=== PATIENT | male | born 1940 | race Caucasian/White ===

== ENCOUNTER → 2020-05-26 09:15 | Outpatient (CLI) | payer MEDICARE, SELFPAY | PROVIDERS: Family Provider Physician Assistant Medical; PCP Physician Assistant Medical; Referring Provider Physician Assistant Medical; Visit Provider Family Medicine | DX: L08.89 Other specified local infections of the skin and subcutaneous tissue (principal); I87.2 Venous insufficiency (chronic) (peripheral); L97.321 Non-pressure chronic ulcer of left ankle limited to breakdown of skin; L03.116 Cellulitis of left lower limb; R60.0 Localized edema | CPT/HCPCS: 11042; 87070; 87205; 99204; 99214 ==

== ENCOUNTER → 2020-05-26 14:49 | Outpatient (ROUT) | payer MEDICARE, SELFPAY | PROVIDERS: Family Provider Physician Assistant Medical; PCP Physician Assistant Medical; Visit Provider Family Medicine | DX: L08.89 Other specified local infections of the skin and subcutaneous tissue (principal) | CPT/HCPCS: 87070; 87075; 87205 ==

== ENCOUNTER → 2020-05-29 10:52 | Outpatient (CLI) | payer MEDICARE, SELFPAY | PROVIDERS: Family Provider Physician Assistant Medical; PCP Physician Assistant Medical; Referring Provider Physician Assistant Medical; Visit Provider Family Medicine | DX: I87.2 Venous insufficiency (chronic) (peripheral) (principal); L97.321 Non-pressure chronic ulcer of left ankle limited to breakdown of skin; R60.0 Localized edema | CPT/HCPCS: 29581 ==

== ENCOUNTER → 2020-06-02 14:58 | Outpatient (CLI) | payer MEDICARE, SELFPAY | PROVIDERS: Family Provider Physician Assistant Medical; PCP Physician Assistant Medical; Referring Provider Physician Assistant Medical; Visit Provider Family Medicine | DX: I87.2 Venous insufficiency (chronic) (peripheral) (principal); L97.321 Non-pressure chronic ulcer of left ankle limited to breakdown of skin; R60.0 Localized edema | CPT/HCPCS: 29581; 97597 ==

== ENCOUNTER → 2020-06-09 10:53 | Outpatient (CLI) | payer MEDICARE, SELFPAY | PROVIDERS: Family Provider Physician Assistant Medical; PCP Physician Assistant Medical; Referring Provider Physician Assistant Medical; Visit Provider Family Medicine | DX: I87.2 Venous insufficiency (chronic) (peripheral) (principal); L97.321 Non-pressure chronic ulcer of left ankle limited to breakdown of skin; R60.0 Localized edema | CPT/HCPCS: 11042 ==

== ENCOUNTER → 2020-06-16 10:45 | Outpatient (CLI) | payer MEDICARE, SELFPAY | PROVIDERS: Family Provider Physician Assistant Medical; PCP Physician Assistant Medical; Referring Provider Physician Assistant Medical; Visit Provider Family Medicine | DX: I87.2 Venous insufficiency (chronic) (peripheral) (principal); L97.321 Non-pressure chronic ulcer of left ankle limited to breakdown of skin; R60.0 Localized edema | CPT/HCPCS: 29581; 99213 ==

== ENCOUNTER → 2020-06-23 09:45 | Outpatient (CLI) | payer MEDICARE, SELFPAY | PROVIDERS: Family Provider Physician Assistant Medical; PCP Physician Assistant Medical; Referring Provider Physician Assistant Medical; Visit Provider Family Medicine | DX: I87.2 Venous insufficiency (chronic) (peripheral) (principal); L97.321 Non-pressure chronic ulcer of left ankle limited to breakdown of skin; R60.0 Localized edema | CPT/HCPCS: 99213 ==

== ENCOUNTER → 2022-01-06 11:42 | Outpatient (CLI) | payer MEDICARE, SELFPAY ==
--- NOTE | 2022-01-06 11:45 | DI.MRI.S_ITS ---
PROCEDURE: MR LUMBAR SPINE WO CON INDICATIONS: Radiculopathy, lumbar region TECHNIQUE: Noncontrast sagittal T1 spin echo and T2 fast echo, sagittal STIR, and T2 fast spin echo through the lumbar spine. In cases with scoliosis, additional coronal T2 fast spin echo may be performed. COMPARISON: None. FINDINGS: Image quality: Excellent. Alignment and Curvature: Degenerative retrolisthesis L1-2. Remainder the vertebral body height and alignment is well maintained. Bone Marrow: Marrow is of normal overall signal. No acute vertebral body compression fractures. Spinal Cord: Conus medullaris terminates at the L1 level. Visualized cord demonstrates normal signal and size. Paraspinous Soft Tissues: No paravertebral masses. T12-L1: Normal appearance. L1-L2: Disc space narrowing with circumferential disc bulge and hypertrophic facet joints results in mild central stenosis. Mild bilateral foraminal stenosis L2-L3: Disc space narrowing with circumferential disc bulge and hypertrophic facet joints results in mild central stenosis. No foraminal stenosis L3-L4: Disc space narrowing, hypertrophic facet joints and ligamentum flavum laxity combined result in severe central stenosis. Mild left and no right foraminal stenosis L4-L5: Disc space narrowing with circumferential disc bulge and hypertrophic facet joints results in moderate central stenosis mild bilateral foraminal stenosis. L5-S1: Disc space narrowing with circumferential disc bulge and hypertrophic facet joints results in mild central stenosis. Mild bilateral foraminal stenosis. IMPRESSION: Multilevel degenerative disc disease and arthropathy results in varying degrees of central and foraminal stenosis including severe L3-4 central stenosis Approved by: Seth Hope M.D. on 01/06/2022 at 13:49
== END ==
PROVIDERS: Family Provider Physician Assistant Medical; PCP Nurse Practitioner Family; Referring Provider Physical Medicine & Rehabilitation; Visit Provider Physical Medicine & Rehabilitation
DX: M48.061 Spinal stenosis, lumbar region without neurogenic claudication (principal); M51.16 Intervertebral disc disorders with radiculopathy, lumbar region
CPT/HCPCS: 72148

== ENCOUNTER 2023-09-14 08:13 | Emergency (ER) | payer MEDICARE, SELFPAY ==
[2023-09-14] VITALS (9 sets, daily range): BP systolic 113–137; BP diastolic 57–77; PULSE 55–71; RESP 8–24; TEMP 36.8; O2SAT 93–97
--- NOTE | 2023-09-14 08:37 | ED_ITS ---
HPI - Male Genitourinary General Chief complaint: Urogenital-Male Stated complaint: per pt trouble urinating & retaining water Time Seen by Provider: 09/14/23 08:35 History of Present Illness HPI Narrative: Patient 83-year-old male history of atrial fibrillation not on anticoagulation history of BPH recent Burnham catheter that was taken out a couple of weeks ago presents today with inability to urinate. He was down in [place] for about the last 6 months he was supposed to have some sort of prostate surgery but needed cardiac clearance 1st. In [place] he had a cardiac catheterization he was medically cleared over his prostate surgery kept getting delayed and canceled. At some point recently had a catheter for a couple of weeks and then it was removed. At which point he flew back here to [facility] last week. He reports that his legs get significantly swollen along with his scrotum but he is unsure if he has congestive heart failure. He reports that he has been unable to urinate since last night. He has some dribbles last night but not able to go this morning. He denies any sort of significant abdominal pain nausea or vomiting. He has no chest pain reports his legs are again quite swollen. He denies any sort of orthopnea or dyspnea with exertion but does feel like his abdomen is little bit more swollen like it has been previously Related Data Previous Rx's Medication Instructions Recorded furosemide 40 mg tablet (Lasix) 80 mg (2 x 40 mg) PO BID #10 tabs 09/14/23 Allergies Allergy/AdvReac Type Severity Reaction Status Date / Time Penicillins Allergy Verified 09/14/23 10:01 Patient History Social History Smoking Status: Never smoker Exam Initial Vital Signs Initial Vital Signs: Vital Signs Temperature 98.2 F 09/14/23 08:35 Pulse Rate 71 09/14/23 08:35 Respiratory Rate 8 L 09/14/23 08:35 Blood Pressure 119/57 L 09/14/23 08:35 Pulse Oximetry 95 09/14/23 08:35 GENERAL: Alert pleasant 83-year-old male and in no acute distress. HEENT: Head atraumatic,EOMI, pupils reactive, face symmetric, moist mucous membranes CARDIOVASCULAR: Regular rate and rhythm without murmurs, rubs or gallops. RESPIRATORY: Breath sounds equal bilaterally, no wheezes rales or rhonchi. ABDOMEN: Soft, nontender. Normoactive bowel sounds all 4 quadrants. No guarding or rebound. : No CVA tenderness EXTREMITIES: Normal range of motion, no clubbing. Bilateral lower extremity significant swelling +2 pitting edema Neurovascularly intact NEUROLOGICAL: Alert and oriented x4.Normal gait and speech. Cranial nerves II through XII grossly intact. SKIN: Warm, dry, no laceration, no petechiae, no rashes or lesions. Course Orders Ordered: ED Orders 09/14/23 11:39 Urine Culture Stat Urine Microscopic Stat Discontinued Medications Furosemide (Furosemide 40 Mg/4 Ml Vial) 40 mg IV NOW ONE Stop: 09/14/23 09:34 Last Admin: 09/14/23 10:01 Dose: 40 mg Documented By: MARCOS Vital Signs Vital signs: Vital Signs - 8 hr 09/14/23 11:00 09/14/23 11:00 09/14/23 11:30 Pulse Rate 62 57 L Respiratory Rate 24 23 Blood Pressure 137/63 Pulse Oximetry 94 96 09/14/23 11:31 09/14/23 11:31 Pulse Rate 55 L Respiratory Rate 23 Blood Pressure 125/64 Pulse Oximetry 96 MDM - Male Genitourinary Lab Data 09/14/23 08:38 09/14/23 08:38 Labs: Lab Results 09/14/23 09/14/23 Range/Units 08:38 11:39 WBC 4.0 L (4.5-11.0) X10^3/uL RBC 3.67 L (4.5-5.9) X10^6/uL Hgb 12.2 L (13.5-17.5) g/dL Hct 36.6 L (41-53) % MCV 99.8 (80-100) fL MCH 33.3 (26-34) PG MCHC 33.4 (30-36) % RDW 15.2 H (11.6-14.8) % Plt Count 85 L (150-400) X10^3/uL Neut % (Auto) 68.1 (50-75) % Lymph % (Auto) 25.6 (25-40) % Wells % (Auto) 4.9 (3-14) % Eos % (Auto) 0.5 L (2-4) % Baso % (Auto) 0.9 (0-2) % Neut # (Auto) 2700 (8637-4893) /uL Lymph # (Auto) 1000 L (0594-7211) /uL Wells # (Auto) 200 (0-900) /uL Eos # (Auto) 0 (0-450) /uL Baso # (Auto) 0 (0-100) /uL PT 15.1 H (9.4-12.5) SECONDS INR 1.3 (0.9-1.3) APTT 42 H (25.1-36.5) SECONDS Sodium 140 (137-145) mmol/L Potassium 4.1 (3.4-5.1) mmol/L Chloride 109 H (98-107) mmol/L Carbon Dioxide 26 (22-32) mmol/L BUN 29 H (9-20) mg/dL Creatinine 0.81 (0.66-1.25) mg/dL Estimated GFR > 60 (>60) mL/min BUN/Creatinine Ratio 35.8 H (6-22) Glucose 117 H (80-110) mg/dL Calcium 8.5 (8.4-10.2) mg/dL Total Bilirubin 1.5 H (0.2-1.3) mg/dL AST 26 (17-59) IU/L ALT 13 (<50) IU/L Alkaline Phosphatase 170 H (38-126) U/L Total Creatine Kinase 60 (55-170) U/L Troponin I 0.025 (0.01-0.034) ng/mL NT-Pro-B Natriuret Pep 1980 H (<450) pg/mL Total Protein 7.4 (6.3-8.2) g/dL Albumin 3.8 (3.5-5.0) g/dL Globulin 3.6 (1.7-4.1) g/dL Albumin/Globulin Ratio 1.1 (1.0-2.8) Lipase 25 (23-300) U/L Urine RBC None seen (0-5/HPF) Urine WBC 1-5/hpf (0-5/HPF) Ur Squamous Epith Cells None seen (0-5/HPF) Urine Bacteria None seen (None) Ur Culture Indicated? Specimen cultured Vol Urine Centrifuged 10ml (spun) Urine Dip Bedside Urine Glucose Negative Bedside Urine Bilirubin - Negative Bedside Urine Ketone - Negative Urine Specific [place] 1.015 Bedside Urine Occult Blood - Negative Bedside Urine pH 6.0 Bedside Urine Protein - Negative Bedside Urine Urobilinogen - Negative Bedside Urine Nitrite - Negative Bedside Urine Leukocytes +/- 15 Esterase Imaging Data Chest x-ray: Radiologist's Impression: PROCEDURE: XR CHEST 1V INDICATIONS: chest pain TECHNIQUE: One view of the chest was acquired. COMPARISON: None. FINDINGS: Surgical changes and devices: None. Lungs and pleura: Small focus of consolidation in the right lung apex. Mediastinum: Mediastinal contours appear normal. Heart size is enlarged. Bones and chest wall: No suspicious bony lesions. Overlying soft tissues appear unremarkable. IMPRESSION: Small focus of consolidation in the right lung apex, concerning for infection. Scarring or malignancy less likely. Recommend follow-up in 1-2 months with chest x-ray to ensure resolution. Dictated by: Didier Gay M.D. on 09/14/2023 at 10:20 ECG Data Attestation: I personally reviewed and interpreted this ECG as follows: Prior ECG tracings: not available for review Interpretation: Atrial fibrillation with PVC rate 66 no ischemic changes no priors to compare MDM Narrative Medical decision making narrative: Patient 83-year-old male history of AFib congestive heart failure presents today with inability to pee. Initially bladder scan only showed less than 200 mL. He ultimately after Lasix was able 300 and is feeling better. Blood work has been reviewed WBC 4.0, hemoglobin 12.2, hematocrit 36.6, platelets 85, PT 15.1, INR 1.3, PTT 42, sodium 140 potassium 4.1, chloride 109, carbon dioxide 26, BUN 29, creatinine 0.81, glucose 117, bilirubin 1.5, AST 26, ALT 13, alk-phos 170, trop 0.025, BNP 1980 lipase 25 EKG reviewed as above AFib without ischemic changes Imaging reviewed DVT study negative bilaterally, chest x-ray no acute cardio finding Patient initially presents today with inability to pee he does bilateral lower extremity edema but his legs are wrapped suspect it is chronically this way or at least to some extent. Slight elevation in BNP no hypoxia or respiratory issues. Not having any chest pain. He does have rate controlled atrial fibrillation which is also probably chronic. At this time I would send him home on Lasix. He is able to urinate greater than 300 cc in the ED no suspicion for over tension at this time although he has had in the past. Patient is agreeable to hold on Burnham catheter seems to be urinating easily with Lasix. Discharge Plan Departure Patient Disposition: Home Clinical Impression: CHF (congestive heart failure) Instructions: DI for Heart Failure Activity Restrictions/Additional Instructions: *You have been diagnosed with congestive heart failure *What to do: At this time you do need an outpatient echocardiogram if you have not yet had 1 *Continue to take medications as directed Lasix 80 mg twice a day for 3 days or you may to 80 mg in the morning and 40 in the afternoon for 3 days, then resume 40 mg twice daily *Follow up with your primary care provider in 2-3 days or call [phone] *Return to ER if you should have increasing leg swelling chest pain shortness of breath difficulty breathing or any new, worsening or concerning symptoms Prescriptions: New furosemide [Lasix] 40 mg tablet 80 mg PO BID Qty: 10 0RF Referrals: Brandi Murrell ARNP [Primary Care Provider] - Stand Alone Forms: Patient Portal/API
--- NOTE | 2023-09-14 08:44 | DI.US.S_ITS ---
PROCEDURE: US PERIPH VENOUS LOW EXTREM BI INDICATIONS: swelling TECHNIQUE: Real-time imaging, as well as color and pulse Doppler interrogation, were performed of the deep veins of both legs from the inguinal ligament to the popliteal fossa, with documentation of the visualized calf veins. COMPARISON: None. FINDINGS: Right: The common femoral, femoral, popliteal, and the visualized calf veins are normally compressible, and free of intraluminal thrombus. Color and pulse Doppler demonstrate normal phasic intravascular flow. There is normal augmentation response to distal compression maneuver. Left: The common femoral, femoral, popliteal, and the visualized calf veins are normally compressible, and free of intraluminal thrombus. Color and pulse Doppler demonstrate normal phasic intravascular flow. There is normal augmentation response to distal compression maneuver. IMPRESSION: No findings of deep venous thrombosis in either lower extremity. Dictated by: Didier Gay M.D. on 09/14/2023 at 10:13 Approved by: Didier Gay M.D. on 09/14/2023 at 10:14
--- NOTE | 2023-09-14 08:45 | DI.RAD.S_ITS ---
PROCEDURE: XR CHEST 1V INDICATIONS: chest pain TECHNIQUE: One view of the chest was acquired. COMPARISON: None. FINDINGS: Surgical changes and devices: None. Lungs and pleura: Small focus of consolidation in the right lung apex. Mediastinum: Mediastinal contours appear normal. Heart size is enlarged. Bones and chest wall: No suspicious bony lesions. Overlying soft tissues appear unremarkable. IMPRESSION: Small focus of consolidation in the right lung apex, concerning for infection. Scarring or malignancy less likely. Recommend follow-up in 1-2 months with chest x-ray to ensure resolution. Dictated by: Didier Gay M.D. on 09/14/2023 at 10:20 Approved by: Didier Gay M.D. on 09/14/2023 at 10:20
[2023-09-14 08:56] LABS: Add Manual Diff / Slide Review NO; Basophils Absolute Auto 0 /uL (0-100); Basophils Percent Auto 0.9 % (0-2); Eosinophils Absolute Auto 0 /uL (0-450); Eosinophils Percent Auto 0.5 % (2-4); Hematocrit 36.6 % (41-53); Hemoglobin 12.2 g/dL (13.5-17.5); Lymphocytes Absolute Auto 1000 /uL (1100-4500); Lymphocytes Percent Auto 25.6 % (25-40); Mean Corpuscular HGB Conc 33.4 % (30-36); Mean Corpuscular Hemoglobin 33.3 PG (26-34); Mean Corpuscular Volume 99.8 fL (80-100); Monocytes Absolute Auto 200 /uL (0-900); Monocytes Percent Auto 4.9 % (3-14); Neutrophils Absolute Auto 2700 /uL (1500-7000); Neutrophils Percent Auto 68.1 % (50-75); Platelet Count 85 X10^3/uL (150-400); Red Blood Cell Count 3.67 X10^6/uL (4.5-5.9); Red Cell Distribution Width 15.2 % (11.6-14.8)
[2023-09-14 09:03] LABS: INR 1.3 (0.9-1.3); Prothrombin Time 15.1 SECONDS (9.4-12.5)
[2023-09-14 09:06] LABS: PTT Partial Thromboplastin Tim 42 SECONDS (25.1-36.5)
[2023-09-14 09:08] LABS: Alanine Aminotransferase 13 IU/L (<50); Albumin 3.8 g/dL (3.5-5.0); Albumin Globulin Ratio 1.1 (1.0-2.8); Alkaline Phosphatase 170 U/L (38-126); Aspartate Aminotransferase 26 IU/L (17-59); BUN Creatinine Ratio 35.8 (6-22); Bilirubin Total 1.5 mg/dL (0.2-1.3); Blood Urea Nitrogen 29 mg/dL (9-20); Calcium 8.5 mg/dL (8.4-10.2); Carbon Dioxide 26 mmol/L (22-32); Chloride 109 mmol/L (98-107); Creatine Kinase 60 U/L (55-170); Estimated Glomerular Filt Rate > 60 mL/min (>60); Globulin 3.6 g/dL (1.7-4.1); Glucose 117 mg/dL (80-110); HEMOLYSIS < 15 (0-50); Lipase 25 U/L (23-300); Potassium 4.1 mmol/L (3.4-5.1); Sodium 140 mmol/L (137-145); Total Protein 7.4 g/dL (6.3-8.2)
[2023-09-14 09:19] LABS: NT-proBNP (BNP-Adult 18+) 1980 pg/mL (<450); Troponin I 0.025 ng/mL (0.01-0.034)
[2023-09-14] MEDS: FUROSEMIDE 40 MG/4 ML VIAL IV (10:01)
[2023-09-14 11:57] LABS: Urine Volume 10mL (spun)
[2023-09-14 12:00] LABS: Bacteria Urine None Seen; Culture Indicated Urine Specimen Cultured; RBC Urine None Seen (0-5/HPF); Squamous Epithelial Cell Urine None Seen (0-5/HPF); WBC Urine 1-5/HPF (0-5/HPF)
== END 2023-09-14 11:50 | disposition home or self-care (01) ==
PROVIDERS: Emergency Provider Emergency Medicine; Family Provider Physician Assistant Medical; PCP Nurse Practitioner Family
DX: I50.9 Heart failure, unspecified (principal); I48.91 Unspecified atrial fibrillation
CPT/HCPCS: 36415; 51798; 71045; 80053; 81003; 81015; 82550; 83690; 83880; 84484; 85025; 85610; 85730; 87086; 93005; 93970; 96374; 99284; J1940

== ENCOUNTER → 2024-04-22 08:42 | Outpatient (CLI) | payer MEDICARE, SELFPAY | LOC: WC 08:45 | PROVIDERS: PCP Physician Assistant Medical; Visit Provider Surgery | DX: L97.322 Non-pressure chronic ulcer of left ankle with fat layer exposed (principal); I87.2 Venous insufficiency (chronic) (peripheral); R60.0 Localized edema; I50.9 Heart failure, unspecified; J44.9 Chronic obstructive pulmonary disease, unspecified; I48.91 Unspecified atrial fibrillation; E66.9 Obesity, unspecified; Z68.33 Body mass index [BMI] 33.0-33.9, adult | CPT/HCPCS: 11042; 87070; 87075; 87077; 87147; 87186; 87205; 99203; 99214 ==

== ENCOUNTER → 2024-04-25 08:52 | Outpatient (CLI) | payer MEDICARE, SELFPAY | PROVIDERS: PCP Physician Assistant Medical; Referring Provider Physician Assistant Medical; Visit Provider Surgery | DX: L97.822 Non-pressure chronic ulcer of other part of left lower leg with fat layer exposed (principal); I87.2 Venous insufficiency (chronic) (peripheral); R60.0 Localized edema | CPT/HCPCS: 29581 ==

== ENCOUNTER → 2024-04-29 09:39 | Outpatient (CLI) | payer MEDICARE, SELFPAY | PROVIDERS: PCP Physician Assistant Medical; Referring Provider Physician Assistant Medical; Visit Provider Surgery | DX: L97.322 Non-pressure chronic ulcer of left ankle with fat layer exposed (principal); I87.2 Venous insufficiency (chronic) (peripheral); R60.0 Localized edema | CPT/HCPCS: 11042 ==

== ENCOUNTER → 2024-05-06 12:23 | Outpatient (CLI) | payer MEDICARE, SELFPAY ==
--- NOTE | 2024-05-06 12:24 | DI.US.S_ITS ---
PROCEDURE: US VENOUS INSUFFICIENCY LTD INDICATIONS: venous leg ulcer on left lower extremity TECHNIQUE: Real time scanning was performed of the lower extremity venous system, with imaging documentation, as well as Color and pulse Doppler interrogation. COMPARISON: [facility], , [facility] VENOUS LOW EXTREM BI, 09/14/2023, 9:01. FINDINGS: LEFT LOWER EXTREMITY: The deep veins are normally compressible, and free of intraluminal thrombus. Color and pulse Doppler demonstrate pulsatile intravascular flow that is symmetric when compared to the contralateral side. There is normal augmentation with distal compression maneuver. Reflux is seen within the common femoral vein. Greater saphenous vein (GSV): Normally 4 mm or less in diameter, with any reflux less than 0.5 seconds. Saphenofemoral junction (SFJ): 7 mm. 2.5 seconds reflux. Proximal GSV: 17 mm. 3.4 seconds reflux. Mid GSV: 14 mm. 1.9 seconds reflux. Distal GSV: 10 mm. 1.5 seconds reflux. Calf GSV: 9 mm, and 2.7 seconds reflux Anterior accessory GSV (AAGSV): A patent accessory vein is seen proximally measuring 5 mm in diameter without reflux. Small saphenous vein (SSV): Posterior calf, draining into popliteal vein. Posterior calf: 4 mm. No reflux. Vein of Giacomini (posterior thigh connection between GSV and SSV): Anatomic variant not seen. Commercial Account Officer veins: Not identified. IMPRESSION: 1. No sonographic signs of deep venous thrombosis. 2. Deep venous reflux within the common femoral vein. 3. Superficial venous reflux throughout the greater saphenous vein. 4. Pulsatile venous waveforms. Recommend correlation for right heart failure or tricuspid regurgitation. Approved by: Babatunde Ramsay M.D. on 05/07/2024 at 9:07
== END ==
PROVIDERS: PCP Physician Assistant Medical; Referring Provider Surgery; Visit Provider Surgery
DX: L97.322 Non-pressure chronic ulcer of left ankle with fat layer exposed (principal); I87.2 Venous insufficiency (chronic) (peripheral); R60.0 Localized edema
CPT/HCPCS: 93971; 97602

== ENCOUNTER → 2024-05-06 14:47 | Outpatient (CLI) | payer MEDICARE, SELFPAY | PROVIDERS: PCP Physician Assistant Medical; Visit Provider Surgery | DX: L97.322 Non-pressure chronic ulcer of left ankle with fat layer exposed (principal); I87.2 Venous insufficiency (chronic) (peripheral); R60.0 Localized edema | CPT/HCPCS: 97602; 99213 ==

== ENCOUNTER → 2024-05-13 10:12 | Outpatient (CLI) | payer MEDICARE, SELFPAY | PROVIDERS: PCP Physician Assistant Medical; Visit Provider Surgery | DX: L97.322 Non-pressure chronic ulcer of left ankle with fat layer exposed (principal); I87.2 Venous insufficiency (chronic) (peripheral); R60.0 Localized edema; I48.91 Unspecified atrial fibrillation; J44.9 Chronic obstructive pulmonary disease, unspecified | CPT/HCPCS: 97602; 99213 ==

== ENCOUNTER → 2024-05-20 09:32 | Outpatient (CLI) | payer MEDICARE, SELFPAY | LOC: WC 09:38 | PROVIDERS: PCP Physician Assistant Medical; Visit Provider Surgery | DX: I87.2 Venous insufficiency (chronic) (peripheral) (principal); L98.8 Other specified disorders of the skin and subcutaneous tissue; R60.0 Localized edema | CPT/HCPCS: 99212; 99213 ==

== ENCOUNTER → 2024-05-27 14:30 | Outpatient (CLI) | payer MEDICARE, SELFPAY | PROVIDERS: PCP Physician Assistant Medical; Visit Provider Surgery | DX: I87.2 Venous insufficiency (chronic) (peripheral) (principal) | CPT/HCPCS: 99212; 99213 ==

== ENCOUNTER 2025-03-04 07:44 | Day surgery (SDC) | payer MEDICARE, SELFPAY ==
[2025-02-25 11:56] VITALS: BMI 32.8
[2025-03-04] VITALS (8 sets, daily range): BP systolic 111–132; BP diastolic 55–69; PULSE 56–61; RESP 12–17; TEMP 36.6–36.8; O2SAT 93–97
--- NOTE | 2025-03-04 06:14 | P.HP_ITS ---
History of Present Illness
--- NOTE | 2025-03-04 06:14 | PM.HP.IH.1 ---
History of Present Illness History of Present Illness Chief complaint: Open R inguinal hernia repair w/mesh Narrative: Patient presents for [facility] today. [facility] Medical History (Updated 02/25/25 @ 12:12 by Kia Trejo RN) History of COVID-19 Bilateral lower extremity edema Arrhythmia Asthma HTN (hypertension) Non-ischemic cardiomyopathy Chronic atrial fibrillation Valvular heart disease Heart failure PONV (postoperative nausea and vomiting) Surgical History (Updated 02/25/25 @ 12:12 by Kia Trejo RN) History of prostate surgery Hx of vein stripping Meds Home Medications and Allergies Home Medications ?Medication ?Instructions ?Recorded ?Confirmed ?Type gabapentin 300 mg capsule 300 mg PO DAILY 01/01/25 01/01/25 History meloxicam 7.5 mg tablet 7.5 mg PO DAILY 01/01/25 01/01/25 History metolazone 2.5 mg tablet 2.5 mg PO DAILY 01/01/25 01/01/25 History montelukast 10 mg tablet 10 mg PO DAILY 01/01/25 01/01/25 History prednisone 20 mg tablet 40 mg PO DAILY 01/01/25 01/01/25 History torsemide 10 mg tablet 10 mg PO DAILY 01/01/25 01/01/25 History Allergies Allergy/AdvReac Type Severity Reaction Status Date / Time Beef Containing Products Allergy Hives Verified 02/25/25 12:15 kiwi Allergy Hives Verified 02/25/25 12:15 nectarine Allergy Hives Verified 02/25/25 12:15 peach Allergy Hives Verified 02/25/25 12:15 Penicillins Allergy Hives Verified 02/25/25 12:15 shellfish derived Allergy Hives Verified 02/25/25 12:15 Exam Narrative Exam Narrative: Const General: healthy appearing, comfortable and no acute distress Orientation: alert and oriented x3 HENMT Ears: hearing grossly normal bilaterally Eyes Visual Frazier: normal visual frazier by confrontation Conjunctivae: conjunctivae normal Sclera: sclerae normal EOM: EOM intact bilaterally Resp Effort & Inspection: normal respiratory effort and able to speak in complete sentences Cardio Rate: regular rate GI Palpation: soft (NT) Extrem General: no pedal edema and no calf tenderness Assessment & Plan Assessment and plan (1) Right inguinal hernia: Status: Acute Plan Right inguinal hernia - plan open Lichenstein technique with mesh to avoid general anesthesia. Plan preop cardiac clearance. He has seen [facility] in the past, referral placed. The risks, benefits and options regarding the procedure were explained to the patient in detail. Risk discussion included but not limited to: bleeding, infection, pain, bruising, no lifting 6 weeks, recurrence. The patient was encouraged to ask questions and they were answered to their satisfaction. The patient understands and is agreeable to proceed. Time-Based Coding :: [TOTAL MINUTES] spent with patient and on the chart (including review of chart, obtaining history, exam, reviewing outside data, placing orders, documenting exam and treatment plan, and counseling patient) on [DATE]. PROFEE Counselor Education Professor Document charge(s): Yes Charge Codes Inpatient/observation care including admit and discharge same day: [id number]
--- NOTE | 2025-03-04 08:54 | SUR.PREOP ---
Start Potassium 02/28/25 for low potassium. Recheck on 03/03/25 Potassium 3.9
[2025-03-04] MEDS: LACTATED RINGERS 1,000 ML 42 ML IV (09:00)
--- NOTE | 2025-03-04 09:34 | SUR.OPER ---
Supine on padded OR bed, head on pillow, arms secured on padded arm boards at <90 degrees abduction, legs uncrossed, safety belt at thigh, tape over blanket over lower legs.
[2025-03-04] MEDS: BUPivacaine 0.25% W/ EPI (PF) 30 ML VIAL 60 ML INJ (09:39)
--- NOTE | 2025-03-04 10:44 | P.OP_ITS ---
Operative Date/Time/Diagnoses
--- NOTE | 2025-03-04 10:44 | PM.OP.1 ---
Operative Date/Time/Diagnoses Date of procedure: 03/04/25 Time of procedure: 10:45 Pre-op diagnosis: Right inguinal hernia Post-op diagnosis: same (Large indirect) Procedure & Clinicians Procedure: Open right inguinal hernia repair with mesh, Lizz technique Same procedure(s) as scheduled: Yes Indications: 84yo M with large RIH Surgeon: Elieser Baca Assisted?: Yes Information Technology Program Manager: Lokesh Gatica Anesthesia Type: General Operative Notes Findings: Large indirect inguinal hernia sac Closure Type: primary Specimen(s): none sent Applied: other (mesh) Estimated Blood Loss (mL): 20 Blood products transfused: none Procedure in detail: After informed consent and satisfactory sedation, the groins were shaved and prepped and draped in the usual sterile manner. Surgical time-out was performed with all team members in agreement. The correct side was marked in the preoperative holding area. The patient received appropriate preoperative antibiotics and DVT prophylaxis. A right inguinal incision was made with a 15 blade after infiltrating the skin and subcutaneous tissues with 0.25% Marcaine with epinephrine. The incision was continued through the subcutaneous tissues to the external abdominal oblique aponeurosis. The patient was noted to have a large hernia sac bulging through the external ring which was quite dilated. We [place] was used for exposure. Fifteen blade was used to make a small opening in the external abdominal oblique and this was continued proximally and distally with Metzenbaum scissors taking care to avoid injury to the ilioinguinal nerve. The large sac was brought off the pubic bone medially and a Germain drain was used for retraction. We skeletonized the cord by opening the cremasteric muscles anterior to the cord structures. The inguinal sac was isolated and carefully from the cord structures. This dissection was continued to the internal inguinal ring. The sac was opened to ensure there were no intraperitoneal contents in the hernia sac. The hernia had been reduced prior to the procedure after the patient was sedated. Once we ensured there were no peritoneal contents in the sac both visually and digitally, the sac was twisted and high ligation of the sac was performed with 2-0 silk suture ligature x2 and the distal sac was excised and discarded. The patient was also noted to have a large cord lipoma and this was similarly dissected from the cord structures and high ligation with 2-0 silk was performed with excellent hemostasis. The direct floor was intact. We reinforced this with mesh using the Lizz technique. A 2 x 4 inch piece of mesh was fashioned with Pena scissors. It was secured to the shelving edge of the inguinal ligament from the pubic bone and run laterally with a 3-0 Prolene. A 2nd 3-0 Prolene was started reinforcing the superomedial border of the mesh to the conjoined tendon. The mesh was split around the cord and then the tails were brought together to recreate an internal inguinal ring. The cord structures were noted to not be too tight at the internal ring created with the mesh. Hemostasis was excellent. The cord structures were returned to the inguinal canal we made sure the testicle was in the scrotum. Of note the patient had a small hydrocele that was marsupialized. The sac was quite lengthy and extended all the way to the testicle. The external abdominal oblique aponeurosis was reapproximated using 3-0 Vicryl running. I should also mention the tails of the mesh were brought together with 2-0 Ethibond suture. The Landen's fascia and subcutaneous layers were closed using 3-0 Vicryl running. The skin incision was closed using 4-0 Monocryl in a subcuticular manner. Dermabond glue was applied as a final dressing. The estimated blood loss was minimal. The instrument sponge and needle counts were all correct x2. The patient tolerated the procedure well and was transported to the recovery area in stable condition. Despite a large amount of local anesthetic the patient was still having discomfort under sedation and this required deeper sedation with an LMA airway mid procedure. Complications: none Post-operative Condition: stable Disposition: PACU Plan for aftercare: PACU then home
[2025-03-04] MEDS: fentaNYL 100 MCG/2 ML INJ IV ×2 (11:02→11:09)
[2025-03-04] MEDS: ACETAMINOPHEN IV 1,000 MG/100 ML VIAL 400 MG IV (11:52)
== END 2025-03-04 13:12 | disposition home or self-care (01) ==
PROVIDERS: PCP Physician Assistant Medical; Referring Provider Physician Assistant Medical; Visit Provider Surgery
PROC: (CPT 49505; principal; 2025-03-04 09:15)
DX: K40.90 Unilateral inguinal hernia, without obstruction or gangrene, not specified as recurrent (principal); D17.6 Benign lipomatous neoplasm of spermatic cord
CPT/HCPCS: 49505; C1781; J0131; J0689; J2405; J2704; J3010; J3490; J7120

== ENCOUNTER 2025-03-08 23:02 | Inpatient (IN) | payer MEDICARE, SELFPAY ==
--- NOTE | 2025-03-08 23:11 | ED.GIBLEED ---
HPI - GI Bleed General Chief complaint: GI Bleed Stated complaint: Rectal Bleeding Time Seen by Provider: 03/08/25 23:10 History of Present Illness HPI Narrative: 84-year-old male patient with a history of atrial fibrillation and chronic venous insufficiency / edema. he underwent an abdominal wall hernia repair 4 days ago. He was started on Eliquis for atrial fibrillation with his 1st dose taken today. He noticed blood per rectum for about the last 6 or 7 hours with no abdominal pain other than his postoperative pain which is improving in the right lower quadrant. He arrives by paramedics and has had stable vital signs with no tachycardia or hypotension. Related Data Home Medications ?Medication ?Instructions ?Recorded ?Confirmed gabapentin 300 mg capsule 300 mg PO DAILY 01/01/25 03/04/25 meloxicam 7.5 mg tablet 7.5 mg PO DAILY 01/01/25 03/04/25 metolazone 2.5 mg tablet 2.5 mg PO DAILY 01/01/25 03/04/25 montelukast 10 mg tablet 10 mg PO DAILY 01/01/25 03/04/25 prednisone 20 mg tablet 40 mg PO DAILY 01/01/25 03/04/25 torsemide 10 mg tablet 10 mg PO DAILY 01/01/25 03/04/25 apixaban 5 mg tablet (Eliquis) 5 mg PO BID 03/04/25 03/04/25 potassium chloride 10 mEq 10 meq PO DAILY 03/04/25 03/04/25 tablet,extended release Previous Rx's ?Medication ?Instructions ?Recorded oxycodone 5 mg capsule 5 mg PO Q4H PRN pain #20 caps 03/04/25 Allergies Allergy/AdvReac Type Severity Reaction Status Date / Time adhesive tape Allergy Severe rash, Verified 03/08/25 23:13 blister latex Allergy Severe hives, Verified 03/08/25 23:13 blister Beef Containing Products Allergy Hives Verified 03/08/25 23:13 kiwi Allergy Hives Verified 03/08/25 23:13 nectarine Allergy Hives Verified 03/08/25 23:13 peach Allergy Hives Verified 03/08/25 23:13 Penicillins Allergy Hives Verified 03/08/25 23:13 shellfish derived Allergy Hives Verified 03/08/25 23:13 Coban Allergy Mild Uncoded 03/08/25 23:13 Review of Systems Review of Systems ROS Unobtainable: All systems reviewed & are unremarkable except as noted in HPI and below Gastrointestinal Gastrointestinal: Reports as per HPI Patient History Medical History (Updated 03/09/25 @ 00:01 by Johnny Dye MD) History of COVID-19 Bilateral lower extremity edema Arrhythmia Asthma HTN (hypertension) Non-ischemic cardiomyopathy Chronic atrial fibrillation Valvular heart disease Heart failure PONV (postoperative nausea and vomiting) Surgical History (Updated 02/25/25 @ 12:12 by Kia Trejo RN) History of prostate surgery Hx of vein stripping alcohol intake frequency: 0-2 drinks per day Exam Narrative Exam Narrative: General: Alert and conversant. No distress. Appears well nourished and well hydrated Craniofacial: No evidence of trauma. Nontender and no swelling. Lungs: Clear to auscultation with good air movement. No wheezing, rales or rhonchi. No respiratory distress Cardiac: Regular rate and rhythm with no appreciable murmur or gallop Abdomen: Soft, nontender with no distention or masses. Normal bowel sounds. No rebound or guarding Rectal: Normal tone with a small amount of medium red blood on the gloved finger. Heme-positive Neuro: Alert and oriented. Cranial nerves, motor, sensory and cerebellar all grossly intact. No focal deficit Skin: Warm and normal color. No rashes Psychological: Normal affect and interaction. No evidence of delusion or psychosis. Normal mood. Initial Vital Signs Initial Vital Signs: Vital Signs Temperature 97.0 F L 03/08/25 23:13 Pulse Rate 80 03/08/25 23:13 Respiratory Rate 17 03/08/25 23:13 Blood Pressure 108/53 L 03/08/25 23:13 Pulse Oximetry 95 03/08/25 23:13 Oxygen Delivery Method Room Air 03/08/25 23:13 Course Course Course Narrative: 23:55 I discussed the patient's care with Dr. Baca, general surgery who is willing to consult on this patient for probable colonoscopy for his GI bleed. I discussed the patient's care with Dr. Pandya, hospitalist who agrees to admit him for lower GI bleed, probably related to Eliquis 00:10 Dr. Pandya was contacted and reviewed the chart and agrees to admit the patient on inpatient telemetry for lower GI bleed with General surgery consultation. Orders Ordered: ED Orders 03/08/25 23:15 CBC Auto Diff [Complete Blood Count AUTO DIFF] Stat CMP [Comprehensive Metabolic Panel] Stat PTT Partial Thromboplastin Garcia Stat Prothrombin Time INR Stat 03/09/25 00:01 Type and Screen Stat Vital Signs Vital signs: Vital Signs - 8 hr 03/08/25 23:13 Temperature 97.0 F L Pulse Rate 80 Respiratory Rate 17 Blood Pressure 108/53 L Pulse Oximetry 95 Oxygen Delivery Method Room Air MDM - GI Bleed Lab Data Attestation: I reviewed the patient's lab results. Lab results narrative: Hemoglobin 8.9 with hematocrit 25.2 with no recent for comparison. Otherwise lab work reassuring. 03/08/25 23:15 03/08/25 23:15 Labs: Lab Results 03/08/25 Range/Units 23:15 WBC 7.5 (4.5-11.0) X10^3/uL RBC 2.62 L (4.5-5.9) X10^6/uL Hgb 8.9 L (13.5-17.5) g/dL Hct 25.2 L (41-53) % MCV 96.2 (80-100) fL MCH 34.2 H (26-34) PG MCHC 35.5 (30-36) % RDW 14.1 (11.6-14.8) % Plt Count 155 (150-400) X10^3/uL Neut % (Auto) 69.6 (50-75) % Lymph % (Auto) 17.4 L (25-40) % [place] % (Auto) 9.7 (3-14) % Eos % (Auto) 2.4 (2-4) % Baso % (Auto) 0.9 (0-2) % Neut # (Auto) 5200 (8214-4971) /uL Lymph # (Auto) 1300 (6778-2906) /uL [place] # (Auto) 700 (0-900) /uL Eos # (Auto) 200 (0-450) /uL Baso # (Auto) 100 (0-100) /uL PT 17.2 H (9.4-12.5) SECONDS INR 1.5 H (0.9-1.3) APTT 31 (25.1-36.5) SECONDS Sodium 134 L (137-145) mmol/L Potassium 4.0 (3.4-5.1) mmol/L Chloride 101 (98-107) mmol/L Carbon Dioxide 24 (22-32) mmol/L BUN 58 H (9-20) mg/dL Creatinine 1.18 (0.66-1.25) mg/dL Estimated GFR > 60 (>60) mL/min BUN/Creatinine Ratio 49.2 H (6-22) Glucose 158 H (70-99) mg/dL Calcium 8.0 L (8.4-10.2) mg/dL Total Bilirubin 2.3 H (0.2-1.3) mg/dL AST 26 (17-59) IU/L ALT 13 (<50) IU/L Alkaline Phosphatase 128 H (38-126) U/L Total Protein 6.5 (6.3-8.2) g/dL Albumin 3.1 L (3.5-5.0) g/dL Globulin 3.4 (1.7-4.1) g/dL Albumin/Globulin Ratio 0.9 L (1.0-2.8) MDM Narrative Medical decision making narrative: Patient has new lower GI bleeding related to his Eliquis use and has stable vital signs but an ongoing bleed with anemia that is moderate. I have discussed his care with both hospitalist and general surgery who agreed to manage this patient with probable colonoscopy tomorrow or Monday. Patient is stable with no pain and is not bleeding enough to require emergent intervention. Discharge Plan Departure Patient Disposition: Admitted As Inpatient Clinical Impression: GI (gastrointestinal bleed) Admit Date/Time: 03/09/25 00:11 Admit Provider: Miguel Pandya
[2025-03-08 23:13] VITALS: BP 108/53; PULSE 80; RESP 17; TEMP 36.1; O2SAT 95; BMI 33.9
[2025-03-08 23:28] LABS: Add Manual Diff / Slide Review NO; Hematocrit 25.2 % (41-53); Hemoglobin 8.9 g/dL (13.5-17.5); Lymphocytes Absolute Auto 1300 /uL (1100-4500); Mean Corpuscular HGB Conc 35.5 % (30-36); Mean Corpuscular Hemoglobin 34.2 PG (26-34); Mean Corpuscular Volume 96.2 fL (80-100); Platelet Count 155 X10^3/uL (150-400)
[2025-03-08 23:33] LABS: INR 1.5 (0.9-1.3); Prothrombin Time 17.2 SECONDS (9.4-12.5)
--- NOTE | 2025-03-08 23:33 | PC.NURSE ---
Patient was turned and linens changed. he was not soiled. Placed in brief in case he begins having rectal bleeding again.
[2025-03-08 23:36] VITALS: PULSE 73; RESP 14; O2SAT 98
[2025-03-08 23:36] LABS: PTT Partial Thromboplastin Tim 31 SECONDS (25.1-36.5)
[2025-03-08 23:37] LABS: Alanine Aminotransferase 13 IU/L (<50); Albumin 3.1 g/dL (3.5-5.0); Albumin Globulin Ratio 0.9 (1.0-2.8); Alkaline Phosphatase 128 U/L (38-126); Blood Urea Nitrogen 58 mg/dL (9-20); Calcium 8.0 mg/dL (8.4-10.2); Carbon Dioxide 24 mmol/L (22-32); Chloride 101 mmol/L (98-107); Estimated Glomerular Filt Rate > 60 mL/min (>60); Globulin 3.4 g/dL (1.7-4.1); Glucose 158 mg/dL (70-99); HEMOLYSIS < 15 (0-50); Potassium 4.0 mmol/L (3.4-5.1); Sodium 134 mmol/L (137-145); Total Protein 6.5 g/dL (6.3-8.2)
[2025-03-09] VITALS (15 sets, daily range): BP systolic 98–122; BP diastolic 42–57; PULSE 61–76; RESP 16–41; TEMP 36.2–37.4; O2SAT 94–99; BMI 33.9
[2025-03-09] MEDS: diphenhydrAMINE 25 MG TABLET PO (01:34)
[2025-03-09] MEDS: SODIUM CHLORIDE 0.9% 1,000 ML 100 ML IV ×3 (04:05→23:07)
[2025-03-09] MEDS: ACETAMINOPHEN 325 MG TABLET 650 MG PO ×2 (05:43→23:02)
[2025-03-09] MEDS: PANTOPRAZOLE 40 MG VIAL IV (05:44)
--- NOTE | 2025-03-09 06:03 | PM.HP.1 ---
History of Present Illness History of Present Illness Date Patient Seen: 03/09/25 Time Patient Seen: 01:03 Chief complaint: Rectal Bleeding Narrative: 84-year-old male with past medical history of atrial fibrillation and recently started on Eliquis first dose a day ago, neuropathy, CHF, hypertension and asthma presents with GI bleeding. Per the patient and his son report, the patient underwent an abdominal wall hernia repair 40 ago. The patient does have a long history of atrial fibrillation but is unclear why yesterday was the day that the patient is was prescribed Eliquis for the first time. The patient states that he did take 1 dose of Eliquis and today the patient noticed some bright red blood per rectum. The patient states that 2 years ago he did have a history of GI bleed with diverticular disease. The patient otherwise denies any melena, coffee-ground emesis, nausea, vomiting, diarrhea, chest pain or shortness of breath. The patient did have some mild abdominal pain related to his postop but overall improvement. The patient has been is being in the right lower quadrant for his hernia repair. The patient denies any alcohol intake or known history of peptic ulcer disease. In the emergency room, the patient was not tachycardic and once heart rate was in the 80s. However blood pressure was slightly on the low side with systolic 108 over diastolic 53. Labs shows a hemoglobin of 8.9 which is a decrease from 12.2 a year and a half ago. Other labs were relatively benign with INR at 1.5 and platelet 155. Her physical did order 1 unit for blood transfusion and general surgery was consulted for possible colonoscopy in the morning. Obviously Eliquis was held. [facility] Medical History (Updated 03/09/25 @ 00:01 by Johnny Dye MD) History of COVID-19 Bilateral lower extremity edema Arrhythmia Asthma HTN (hypertension) Non-ischemic cardiomyopathy Chronic atrial fibrillation Valvular heart disease Heart failure PONV (postoperative nausea and vomiting) Surgical History (Updated 02/25/25 @ 12:12 by Kia Trejo RN) History of prostate surgery Hx of vein stripping Social History household members: none Meds Home Medications and Allergies Home Medications ?Medication ?Instructions ?Recorded ?Confirmed ?Type gabapentin 300 mg capsule 300 mg PO PRN 01/01/25 03/09/25 History metolazone 2.5 mg tablet 2.5 mg PO DAILY 01/01/25 03/09/25 History apixaban 5 mg tablet (Eliquis) 5 mg PO BID 03/04/25 03/09/25 History oxycodone 5 mg capsule 5 mg PO Q4H PRN pain #20 caps 03/04/25 03/09/25 Rx potassium chloride 10 mEq 10 meq PO DAILY 03/04/25 03/09/25 History tablet,extended release Allergies Allergy/AdvReac Type Severity Reaction Status Date / Time adhesive tape Allergy Severe rash, Verified 03/08/25 23:13 blister latex Allergy Severe hives, Verified 03/08/25 23:13 blister Beef Containing Products Allergy Hives Verified 03/08/25 23:13 kiwi Allergy Hives Verified 03/08/25 23:13 nectarine Allergy Hives Verified 03/08/25 23:13 peach Allergy Hives Verified 03/08/25 23:13 Penicillins Allergy Hives Verified 03/08/25 23:13 shellfish derived Allergy Hives Verified 03/08/25 23:13 Coban Allergy Mild Uncoded 03/08/25 23:13 Review of Systems Review of Systems ROS: Yes All systems reviewed with the patient and are negative except as otherwise documented Exam Vital Signs (past 8 hours): - 03/08/25 23:13 03/08/25 23:36 03/09/25 00:00 Temperature 97.0 F L Pulse Rate 80 73 75 Respiratory Rate 17 14 17 Blood Pressure 108/53 L Pulse Oximetry 95 98 94 Oxygen Delivery Method Room Air Oxygen Flow Rate 03/09/25 00:00 03/09/25 00:30 03/09/25 00:30 Temperature Pulse Rate 72 Respiratory Rate 22 Blood Pressure 114/54 L 112/57 L Pulse Oximetry 96 Oxygen Delivery Method Oxygen Flow Rate 03/09/25 01:00 03/09/25 01:03 03/09/25 01:03 Temperature Pulse Rate 72 73 Respiratory Rate 31 H 28 H Blood Pressure 106/53 L Pulse Oximetry 97 94 Oxygen Delivery Method Oxygen Flow Rate 03/09/25 01:30 03/09/25 01:30 03/09/25 01:38 Temperature 99.3 F Pulse Rate 72 73 Respiratory Rate 41 H 18 Blood Pressure 111/55 L 111/55 L Pulse Oximetry 95 Oxygen Delivery Method Oxygen Flow Rate 03/09/25 02:00 03/09/25 02:00 03/09/25 02:03 Temperature 99.4 F Pulse Rate 73 70 Respiratory Rate 34 H 18 Blood Pressure 106/57 L 98/52 L Pulse Oximetry 95 Oxygen Delivery Method Oxygen Flow Rate 03/09/25 02:03 03/09/25 02:03 03/09/25 02:30 Temperature 97.8 F Pulse Rate 70 75 Respiratory Rate 41 H 21 Blood Pressure 98/52 L Pulse Oximetry 96 99 Oxygen Delivery Method Room Air Oxygen Flow Rate 03/09/25 02:30 03/09/25 03:26 03/09/25 03:51 Temperature 97.8 F 98.0 F Pulse Rate 76 66 Respiratory Rate 18 18 Blood Pressure 115/56 L 122/49 L 110/50 L Pulse Oximetry 99 Oxygen Delivery Method Oxygen Flow Rate 0 03/09/25 03:59 Temperature Pulse Rate Respiratory Rate Blood Pressure Pulse Oximetry Oxygen Delivery Method Room Air Oxygen Flow Rate Oxygen Delivery Method Room Air Oxygen Flow Rate 0 Narrative Exam Narrative: Physical Exam: GENERAL: The patient is not in any acute distressed. Awake and alert. HEENT: Nonicteric sclerae, PERRLA, EOMI. Oropharynx clear. Moist mucous membranes. Conjunctivae appear well perfused. HEART: Regular rate but irreg rhythm without murmurs. No lower extremities edema. LUNGS: Clear to auscultation bilaterally. No wheezing, crackles or rhonchi ABDOMEN: Soft, positive bowel sounds, nontender. SKIN: No rash, no excessive bruising, petechiae, or purpura. NEUROLOGIC: AxO x 3. Cranial nerves II-XII intact without motor/sensory deficit. Objective Labs 03/08/25 23:15 03/08/25 23:15 Labs: Laboratory Results - last 24 hr 03/08/25 23:15 WBC 7.5 RBC 2.62 L Hgb 8.9 L Hct 25.2 L MCV 96.2 MCH 34.2 H MCHC 35.5 RDW 14.1 Plt Count 155 Neut % (Auto) 69.6 Lymph % (Auto) 17.4 L [place] % (Auto) 9.7 Eos % (Auto) 2.4 Baso % (Auto) 0.9 Neut # (Auto) 5200 Lymph # (Auto) 1300 [place] # (Auto) 700 Eos # (Auto) 200 Baso # (Auto) 100 PT 17.2 H INR 1.5 H APTT 31 Sodium 134 L Potassium 4.0 Chloride 101 Carbon Dioxide 24 BUN 58 H Creatinine 1.18 Estimated GFR > 60 BUN/Creatinine Ratio 49.2 H Glucose 158 H Calcium 8.0 L Total Bilirubin 2.3 H AST 26 ALT 13 Alkaline Phosphatase 128 H Total Protein 6.5 Albumin 3.1 L Globulin 3.4 Albumin/Globulin Ratio 0.9 L Blood Type O Positive Antibody Screen Negative Crossmatch See Detail Assessment & Plan Assessment & Plan narrative: GI bleeding. Admit the patient to medical telemetry as inpatient. Of note patient's GI bleeding could be due to known history of GI bleeding secondary to diverticular disease and being on Eliquis. Will obviously hold Eliquis. N.p.o. Gentle IV fluid. Patient did receive unit of blood transfusion in the ER. Will start empiric pantoprazole IV but will last likely an upper GI bleed. General surgery consulted and will possibly intervene with colonoscopy. Will refer TO general surgery this morning as there is no request for urgent colonoscopy at this time. Monitor for bleeding and hemoglobin closely. Acute blood loss anemia. As able. Hemoglobin is 8.9. Status post 1 unit transfusion in the ER. Will continue to monitor and transfuse if accordingly. Atrial fibrillation on Eliquis. As stated above. Hold Eliquis for now. Continue to monitor on telemetry for heart rate. CHF. Hold diuretic now. Patient NPO. Monitor volume status with strict I's and O daily weight. Hypertension. Soft blood pressure. Hold all home antihypertensive. DVT prophylaxis SCDs due to GI bleed. CODE STATUS full code. Disposition likely home in 2 days. - As the provider of this telehealth evaluation, requested by the patient's evaluating physician, I attest that I introduced myself to the patient, provided my credentials and determined that telemedicine via a real-time, 2 way interactive audio and video platform is an appropriate and effective means of providing this service. - I reviewed the patient's chart and had a discussion with the member of the patient's treatment team. - The patient and I mutually agreed with continuation of this evaluation via telemedicine. The patient consented for the telemedicine evaluation. - This virtual encounter was taken place from [place] by Dr. Miguel Pandya. The patient was evaluated at [facility]. The encounter was approximately 35 minutes. The nurse was present during the entire time of the encounter and was able to assists with exam/stethoscope. Time-Based Coding :: [TOTAL MINUTES] spent with patient and on the chart (including review of chart, obtaining history, exam, reviewing outside data, placing orders, documenting exam and treatment plan, and counseling patient) on [DATE].
[2025-03-09 08:50] LABS: Add Manual Diff / Slide Review NO; Hematocrit 22.0 % (41-53); Hemoglobin 7.8 g/dL (13.5-17.5); Lymphocytes Absolute Auto 1500 /uL (1100-4500); Mean Corpuscular HGB Conc 35.2 % (30-36); Mean Corpuscular Hemoglobin 33.4 PG (26-34); Mean Corpuscular Volume 94.9 fL (80-100); Platelet Count 122 X10^3/uL (150-400)
--- NOTE | 2025-03-09 11:16 | PM.CN.IH.1 ---
History of Present Illness Consult details Date Patient Seen: 03/09/25 Time Patient Seen: 11:17 Chief complaint: Rectal Bleeding Reason for consult: BRBPR Requesting provider: Johnny Dye Narrative: 84yo M known to me from [facility] last week. Presented to ED with BRBPR after first dose of eliquis for afib (Monday at 1300). hgb 8.9 in ED, down from 12 two years ago, 7.8 this morning, received 1 uPRBCs. No hemodynamic instability. Had significant bruising and swelling as expected after repair of large hernia. Last colonoscopy 15-20 years ago per patient. H/O GI bleeding from diverticular disease. CBC indices normal, without pattern of iron deficiency suggesting acute bleed, not chronic. Meds Home Medications and Allergies Home Medications ?Medication ?Instructions ?Recorded ?Confirmed ?Type gabapentin 300 mg capsule 300 mg PO PRN 01/01/25 03/09/25 History metolazone 2.5 mg tablet 2.5 mg PO DAILY 01/01/25 03/09/25 History apixaban 5 mg tablet (Eliquis) 5 mg PO BID 03/04/25 03/09/25 History oxycodone 5 mg capsule 5 mg PO Q4H PRN pain #20 caps 03/04/25 03/09/25 Rx potassium chloride 10 mEq 10 meq PO DAILY 03/04/25 03/09/25 History tablet,extended release Allergies Allergy/AdvReac Type Severity Reaction Status Date / Time adhesive tape Allergy Severe rash, Verified 03/08/25 23:13 blister latex Allergy Severe hives, Verified 03/08/25 23:13 blister Beef Containing Products Allergy Hives Verified 03/08/25 23:13 kiwi Allergy Hives Verified 03/08/25 23:13 nectarine Allergy Hives Verified 03/08/25 23:13 peach Allergy Hives Verified 03/08/25 23:13 Penicillins Allergy Hives Verified 03/09/25 10:35 shellfish derived Allergy Hives Verified 03/08/25 23:13 Coban Allergy Mild Uncoded 03/08/25 23:13 Exam Vital Signs (past 8 hours): - 03/09/25 03:26 03/09/25 03:51 03/09/25 03:59 Temperature 97.8 F 98.0 F Pulse Rate 76 66 Respiratory Rate 18 18 Blood Pressure 122/49 L 110/50 L Pulse Oximetry 99 Oxygen Delivery Method Room Air Oxygen Flow Rate 0 03/09/25 07:00 Temperature 97.8 F Pulse Rate 66 Respiratory Rate 18 Blood Pressure 115/49 L Pulse Oximetry 97 Oxygen Delivery Method Oxygen Flow Rate Oxygen Delivery Method Room Air Oxygen Flow Rate 0 Narrative Exam Narrative: Const General: comfortable and no acute distress Orientation: alert and oriented x3 HENMT Ears: hearing grossly normal bilaterally Eyes Visual Covarrubias: normal visual covarrubias by confrontation Conjunctivae: conjunctivae normal Sclera: sclerae normal EOM: EOM intact bilaterally Resp Effort & Inspection: normal respiratory effort and able to speak in complete sentences Cardio Rate: irregular rate GI Palpation: soft (NT) +edema, bruising associated with right inguinal hernia repair as expected for large hernia; no erythema or drainage from incision Extrem General: no calf tenderness Objective Labs 03/09/25 08:42 03/08/25 23:15 Labs: Laboratory Results - last 24 hr 03/08/25 03/09/25 23:15 08:42 WBC 7.5 7.1 RBC 2.62 L 2.32 L Hgb 8.9 L 7.8 L Hct 25.2 L 22.0 L MCV 96.2 94.9 MCH 34.2 H 33.4 MCHC 35.5 35.2 RDW 14.1 14.5 Plt Count 155 122 L Neut % (Auto) 69.6 63.5 Lymph % (Auto) 17.4 L 21.5 L [place] % (Auto) 9.7 10.5 Eos % (Auto) 2.4 3.1 Baso % (Auto) 0.9 1.4 Neut # (Auto) 5200 4500 Lymph # (Auto) 1300 1500 [place] # (Auto) 700 700 Eos # (Auto) 200 200 Baso # (Auto) 100 100 PT 17.2 H INR 1.5 H APTT 31 Sodium 134 L Potassium 4.0 Chloride 101 Carbon Dioxide 24 BUN 58 H Creatinine 1.18 Estimated GFR > 60 BUN/Creatinine Ratio 49.2 H Glucose 158 H Calcium 8.0 L Total Bilirubin 2.3 H AST 26 ALT 13 Alkaline Phosphatase 128 H Total Protein 6.5 Albumin 3.1 L Globulin 3.4 Albumin/Globulin Ratio 0.9 L Blood Type O Positive Antibody Screen Negative Crossmatch See Detail [facility] Medical History (Updated 03/09/25 @ 11:36 by Elieser Baca MD) History of COVID-19 Bilateral lower extremity edema Arrhythmia Asthma HTN (hypertension) Non-ischemic cardiomyopathy Chronic atrial fibrillation Valvular heart disease Heart failure PONV (postoperative nausea and vomiting) Surgical History (Updated 02/25/25 @ 12:12 by Kia Trejo RN) History of prostate surgery Hx of vein stripping Social History household members: none Assessment & Plan Assessment and plan (1) GI (gastrointestinal bleed): Qualifiers: GI bleed type/associated pathology: anorectal hemorrhage Qualified Code(s): K62.5 - Hemorrhage of anus and rectum Status: Acute (2) BRBPR (bright red blood per rectum): Status: Acute Plan Golytely prep today. Colonoscopy tomorrow. Will be off eliquis for 48 hours by tomorrow. Plan colonoscopy, possible biopsy. The risks, benefits and options regarding the procedure were explained to the patient in detail. Risk discussion included but not limited to: bleeding, perforation, unable to reach cecum, missed lesion. The patient was encouraged to ask questions and they were answered to their satisfaction. The patient understands and is agreeable to proceed. Time-Based Coding :: [TOTAL MINUTES] spent with patient and on the chart (including review of chart, obtaining history, exam, reviewing outside data, placing orders, documenting exam and treatment plan, and counseling patient) on [DATE]. PROFEE Charge Codes Inpatient or Observation consultation: [id number]
--- NOTE | 2025-03-09 12:03 | CM.DANOTE ---
Patient is an 84 yo male who was admitted INPT Status on 03/09/25 for GI Bleed. Pt has MCR and AARP for insurance and his PCP is Carolina Fowler. EMR was reviewed. Per MD, pt with hx of neuropathy, CHF, and AFIB and just started on Eliquis two days ago and after first dose had rectal bleed and admitted for GI bleed and anemia needing a unit of blood. Per Surgeon Consult, pt recently had large hernia repair with expected swelling but plan of bowel prep today and colonoscopy with possible biopsy tomorrow Mon 03/10 to determine source of bleed and any further needs. SW attempted to meet bedside with pt but finally sleeping soundly. Pt resides in [place] and is active and independent at baseline and does not use DME for ambulation and drives. Per RN, pt A&O x4 and independent in room currently. Plan: SW to follow closely after colonoscopy tomorrow to confirm safe d/c home and discuss supports and f/u needs with pt prior to discharge. KODY Morley Discharge Planning/Care Management CM Discharge Assessment Start: 03/09/25 02:33 Freq: Status: Active Protocol: Document 03/09/25 12:01 BF (Rec: 03/09/25 12:03 BF [id number]) Discharge Planning Assessment Assigned Discharge K[facility] Tech Provider Carolina Fowler Insurance Medicare DPOA/Assigned son Edmond Designee Name Contact Information [phone] Advance Directives? Yes Advance Directives Yes on File History Provided By Patient,Family Member,Medical Record Has Patient been No admitted in last 30 days? Comment Not admitted but had recent planned large hernia repair with [place] Surgeon Prior Living House Arrangements Household Members none Type of Drives own vehicle transporation used prior to admit Independent with ADL Yes 's Is patient alert and Yes oriented? Caregiver for No Another Barriers to No Discharge Discharge Plan Home Additional Comment Pending scope results and recommendations Whiteboard Updated Yes in Patient Room with name and ext. # of Clinical Research Coordinator Review Status In Process Please Provide Date 03/09/25 Initial DC Assessment Was Performed Next Review Type Continued Stay Review
[2025-03-09] MEDS: PEG3350/SOD SULF,BICARB,CL/KCL 4,000 ML SOLUTION 4000 ML PO (12:11)
[2025-03-09 14:53] LABS: Hematocrit 22.0 % (41-53); Hemoglobin 7.8 g/dL (13.5-17.5)
[2025-03-09 15:06] LABS: Blood Urea Nitrogen 51 mg/dL (9-20); Calcium 7.9 mg/dL (8.4-10.2); Carbon Dioxide 27 mmol/L (22-32); Chloride 103 mmol/L (98-107); Estimated Glomerular Filt Rate > 60 mL/min (>60); Glucose 142 mg/dL (70-99); HEMOLYSIS < 15 (0-50); Magnesium 2.2 mg/dL (1.6-2.3); Potassium 3.8 mmol/L (3.4-5.1); Sodium 135 mmol/L (137-145)
--- NOTE | 2025-03-09 17:18 | PM.PN.1 ---
Subjective Subjective Interval history: 84-year-old gentleman with history of atrial fibrillation, peripheral neuropathy, congestive heart failure, hypertension, and asthma who underwent a right inguinal hernia repair on March 04 and initiated Eliquis anticoagulation yesterday who presented to the emergency department evening with rectal bleeding. Patient reports prior to his hernia repair he was required to go see cardiology for cardiac clearance. His scrap iron cutter felt strongly he should be initiated on anticoagulation (reviewing his chads 2 vas score is 7, equivalent with a greater than 11% risk of stroke annually). Both he and his son were ambivalent about it but ultimately he elected to initiate Eliquis anticoagulation. He had a large inguinal hernia repair performed on March 04, which he tolerated reasonably well. He did initiate the Eliquis yesterday morning, 5 mg dose. Last evening, he developed bright red blood per rectum. He was noted to have significant bruising and swelling around his incision site and down into his scrotum and penis related to his surgery. His hemoglobin was also down from 12.2 in August of 2019 4-8.9 in the ER. He was given 1 unit of packed red blood cells. He was subsequently admitted for further care. He was seen by General surgery shortly before my visit today. He has been initiated on a bowel prep for colonoscopy tomorrow He reports that he will not go back on anticoagulation after this event, particularly as he was ambivalent to initiate anticoagulation in the 1st place. He has a remote history of DVT and having been on anticoagulation in the past and reports he had some difficulty with it at that time as well. He does not recall the specifics. He does report significant discomfort to his scrotum related to swelling and bruising. Exam Vital Signs (past 8 hours): - 03/09/25 11:00 03/09/25 15:00 Temperature 97.4 F L 97.1 F L Pulse Rate 63 66 Respiratory Rate 16 16 Blood Pressure 112/43 L 114/47 L Pulse Oximetry 97 97 Oxygen Delivery Method Room Air Oxygen Flow Rate 0 Narrative Exam Narrative: GEN: Elderly male, Alert and oriented x 3, NAD HEENT:NC, Face symmetric CHEST: Respiratory excursions symmetric, CTAB CV: Irregular, no M/R/G ABD: Soft, tenderness in the right lower quadrant/groin overlying his incision site/ND, BT present in all 4 quadrants, no organomegaly or masses, there is significant ecchymosis and induration around his incision site, with ecchymosis and induration tracking down into the scrotum and penis EXTR: warm, well perfused, no C/C/1+ edema and Raphine skin changes noted bilaterally SKIN: warm and dry, no rash NEURO: Alert and oriented x 3, nonfocal Objective Labs 03/09/25 14:46 03/09/25 14:46 Labs: Laboratory Results - last 24 hr 03/08/25 03/09/25 03/09/25 23:15 08:42 14:46 WBC 7.5 7.1 RBC 2.62 L 2.32 L Hgb 8.9 L 7.8 L 7.8 L Hct 25.2 L 22.0 L 22.0 L MCV 96.2 94.9 MCH 34.2 H 33.4 MCHC 35.5 35.2 RDW 14.1 14.5 Plt Count 155 122 L Neut % (Auto) 69.6 63.5 Lymph % (Auto) 17.4 L 21.5 L [place] % (Auto) 9.7 10.5 Eos % (Auto) 2.4 3.1 Baso % (Auto) 0.9 1.4 Neut # (Auto) 5200 4500 Lymph # (Auto) 1300 1500 [place] # (Auto) 700 700 Eos # (Auto) 200 200 Baso # (Auto) 100 100 PT 17.2 H INR 1.5 H APTT 31 Sodium 134 L 135 L Potassium 4.0 3.8 Chloride 101 103 Carbon Dioxide 24 27 BUN 58 H 51 H Creatinine 1.18 1.11 Estimated GFR > 60 > 60 BUN/Creatinine Ratio 49.2 H 45.9 H Glucose 158 H 142 H Calcium 8.0 L 7.9 L Magnesium 2.2 Total Bilirubin 2.3 H AST 26 ALT 13 Alkaline Phosphatase 128 H Total Protein 6.5 Albumin 3.1 L Globulin 3.4 Albumin/Globulin Ratio 0.9 L Blood Type O Positive Antibody Screen Negative Crossmatch See Detail [facility] Medical History (Updated 03/09/25 @ 11:36 by Elieser Baca MD) History of COVID-19 Bilateral lower extremity edema Arrhythmia Asthma HTN (hypertension) Non-ischemic cardiomyopathy Chronic atrial fibrillation Valvular heart disease Heart failure PONV (postoperative nausea and vomiting) Surgical History (Updated 02/25/25 @ 12:12 by Kia Trejo RN) History of prostate surgery Hx of vein stripping Social History household members: none Assessment & Plan Assessment & Plan narrative: 1. Rectal bleeding He does have a history of diverticular bleeding in the past. Certainly he could have recurrent diverticular bleeding or internal hemorrhoidal bleeding in the setting of initiation of Eliquis anticoagulation. He did receive a unit of packed red blood cells last evening as noted. Colonoscopy prep was initiated today. He will remain on clear liquids. NPO after midnight. Plan for colonoscopy tomorrow. He is an add on according to what Dr. Baca told him. Therefore, it is uncertain what time he will be getting his procedure. 2. Acute blood loss anemia Hemoglobin was 8.9 in the emergency department yesterday. Post 1 unit of packed red blood cells, his hemoglobin is 7.8 this morning. It was repeated this afternoon and remained stable at 7.8. I suspect a fair amount of the hemoglobin decreases related to oozing from his surgical sites and ecchymosis into the scrotum. Will follow. 3. Atrial fibrillation, permanent His CHADS2 Vasc score as noted was 7. This is equivalent with a relatively high risk of stroke, greater than 11%. His has bled score was equal to a moderate risk of major hemorrhage. His hemorrhages score was equivalent to a high risk of major hemorrhage. Given that he was admitted with a bleeding event after a single dose of Eliquis, he has elected not to resume anticoagulation at this time 4. Chronic congestive heart failure, unspecified As he is drinking the bowel prep and will have significant fluid shifts related to that, his diuretic has held 5. Hypertension Outpatient antihypertensive therapy has been held 6. Cardiac ectopy He has been having asymptomatic ectopy and intermittent runs of nonsustained V-tach. BMP and magnesium levels were checked as a consequence this afternoon. No significant electrolyte abnormalities. Will continue to monitor. Code status Full Prophylaxis No chemical prophylaxis in the setting of rectal bleeding Disposition Possible discharge home post colonoscopy if there are no significant findings Time-Based Coding :: [TOTAL MINUTES] spent with patient and on the chart (including review of chart, obtaining history, exam, reviewing outside data, placing orders, documenting exam and treatment plan, and counseling patient) on [DATE].
[2025-03-10] VITALS (18 sets, daily range): BP systolic 99–134; BP diastolic 42–66; PULSE 61–94; RESP 15–22; TEMP 36.1–37.8; O2SAT 96–100
[2025-03-10] MEDS: MORPHINE 2 MG/ML INJ IV (00:59)
[2025-03-10 05:15] LABS: Add Manual Diff / Slide Review NO; Hematocrit 21.4 % (41-53); Hemoglobin 7.5 g/dL (13.5-17.5); Lymphocytes Absolute Auto 1400 /uL (1100-4500); Mean Corpuscular HGB Conc 35.1 % (30-36); Mean Corpuscular Hemoglobin 33.4 PG (26-34); Mean Corpuscular Volume 94.9 fL (80-100); Platelet Count 129 X10^3/uL (150-400)
[2025-03-10 05:48] LABS: Blood Urea Nitrogen 42 mg/dL (9-20); Calcium 7.6 mg/dL (8.4-10.2); Carbon Dioxide 26 mmol/L (22-32); Chloride 105 mmol/L (98-107); Estimated Glomerular Filt Rate > 60 mL/min (>60); Glucose 120 mg/dL (70-99); HEMOLYSIS < 15 (0-50); Potassium 3.1 mmol/L (3.4-5.1); Sodium 138 mmol/L (137-145)
--- NOTE | 2025-03-10 06:19 | PC.RNWOUND ---
patient's RLQ incisional site hardened underneath the incision, and MD () made aware and made mention that he will f/u during morning rounds of the patient d/t expected findings from his surgery and how his healing process was going. No orders needed at this time and patient in no distress.
--- NOTE | 2025-03-10 09:07 | DI.CT.S_ITS ---
PROCEDURE: CT ABDOMEN PELVIS WO CON INDICATIONS: Evaluate for hematoma retroperitoneal TECHNIQUE: CT of the abdomen and pelvis was obtained without intravenous contrast. Coronal and sagittal reformats were performed. For radiation dose reduction, the following was used: automated exposure control, adjustment of mA and/or kV according to patient size. COMPARISON: None. FINDINGS: Image quality: Diagnostic. Lower Chest: Bibasilar scarring/atelectasis are seen. Heart size is enlarged, trace amount of pericardial effusion. ABDOMEN: Liver: No contour-deforming mass. Gallbladder: Calcified stones are seen in dependent portion of gallbladder lumen. Distended gallbladder without gallbladder wall thickening. Biliary ducts: No biliary dilation. Pancreas: No ductal dilation. Spleen: Size is within normal limits. Adrenal Glands: No adrenal nodules. Kidneys and Ureters: No hydronephrosis. No contour-deforming mass. Simple appearing right renal cyst is seen. Stomach and Bowel: Normal colonic caliber, without significant wall thickening. No abscess collection. Extensive sigmoid diverticulosis without CT evidence of acute diverticulitis. Peritoneum: No abnormal intraperitoneal fluid. No free air. Ventral Wall: No significant hernia. Abdominal Nodes: No retroperitoneal or mesenteric adenopathy by size criteria. Vessels: Aorta and inferior vena cava are normal in size. PELVIS: Pelvic Organs: Unremarkable. Bladder: Unremarkable. Pelvic Nodes: No enlarged lymph nodes. Miscellaneous: No inguinal hernias are seen. No retroperitoneal hematoma. A right inguinal hematoma is seen with small amount of subcutaneous emphysema extending to right groin and measures up to 8.8 x 6.8 x 17.1 cm in size series 2, image 145 and series 6, image 38. Bones: No aggressive osseous abnormality. IMPRESSION: 1. Large right inguinal hematoma with subcutaneous emphysema as described above likely related to recent instrumentation. No evidence of retroperitoneal hematoma. No peritoneal free fluid or free air. 2. Cholelithiasis without CT evidence of acute cholecystitis. 3. No bowel obstruction or abnormal bowel wall thickening. No abscess collection. 4. Cardiomegaly and trace amount of pericardial effusion. Dictated by: Hermes Gibbons M.D. on 03/10/2025 at 10:53 Approved by: Hermes Gibbons M.D. on 03/10/2025 at 10:56
[2025-03-10] MEDS: SODIUM CHLORIDE 0.9% 1,000 ML 100 ML IV (10:26)
[2025-03-10] MEDS: POTASSIUM CHLORIDE IN WATER 10 MEQ/100 ML PIGGYBACK 100 MEQ IV (10:26)
--- NOTE | 2025-03-10 12:20 | PM.OP.COLON ---
Operative Date/Time/Diagnoses Date of procedure: 03/10/25 Time of procedure: 12:56 Pre-op diagnosis: Rectal bleeding Post-op diagnosis: other (Diverticulosis, internal hemorrhoids) Procedure & Clinicians Study performed: Diagnostic colonoscopy Same procedure(s) as scheduled: Yes Indications: 84yo M with rectal bleeding Surgeon: Elieser Baca Anesthesia Type: MAC +/- Procedure Notes SCOAP/Timeout: Performed Procedure in detail: Colonoscopy Patient placed in left lateral recumbent position. Time out was performed. Procedural sedation was administered by anesthesia. Examination began with a thorough inspection of the perianal area. There was no evidence of fissures, fistulae, external hemorrhoids or cutaneous malignancy. The colonoscope was then placed into the rectum and the lumen was insufflated with carbon dioxide. The scope was carefully advanced forward. Ultimately the cecum was intubated and confirmed by identification of the ileocecal valve, the appendiceal orifice and the confluence of the taenia. The scope was then slowly withdrawn examining the colon thoroughly in all directions. In the rectum, retroflexion of the scope was performed for inspection of the distal rectum and anal canal. ?Significant colonoscopy findings: ?1. Quality of the preparation-poor, [place] 1-2, improved with irrigation/suction, lesions could be missed ?2. Many large sigmoid diverticulosis, mostly in sigmoid 3. Small internal hemorrhoids 4. No active bleeding 5. Most likely source of LGI bleeding is diverticular bleed 6. No polyps, masses appreciated Scope withdrawal time: 20 minutes Findings: divertiulosis and internal hemorrhoids Specimen(s): none sent Estimated Blood Loss: 5 Complications: none Impression: Sigmoid diverticulosis, most likely source of LGI bleeding Small internal hemorrhoids No active bleeding Post-procedure Recommendations: Colonoscopy in 10 years Plan for aftercare: PACU then floor Follow up: as needed Disposition: PACU
--- NOTE | 2025-03-10 12:26 | PC.NURSE ---
POU[facility]O K[facility]A KAUP[facility]A MAORI called @ ~1200Pm to inform this RN reggie t patient was in Vtach- five minute run. Patient was currently in OR for colonoscopy. Called OR and informed Prashanth URBANO of current VTach. Hospitalist notified.
[2025-03-10 14:37] LABS: Hematocrit 22.5 % (41-53); Hemoglobin 7.8 g/dL (13.5-17.5)
[2025-03-10] MEDS: LACTATED RINGERS 1,000 ML 42 ML IV (15:04)
[2025-03-10] MEDS: POTASSIUM CHLORIDE 20 MEQ TAB 40 MEQ PO ×2 (15:05→21:35)
--- NOTE | 2025-03-10 15:58 | CM.DPC ---
DCP Cont: Per MD, pt to have colonoscopy later today and CT scan prior and has been 1PA with FWW in room with nursing staff. PT ordered for likely eval tomorrow. SW to follow closely after scope today and then PT eval tonight vs tomorrow to determine any discharge planning needs. [place] Sutton MSW
--- NOTE | 2025-03-10 16:37 | P.PN_ITS ---
Subjective Subjective Date Patient Seen: 03/10/25 Interval history: Chief complaint: Rectal bleeding and pain and scrotal swelling from large hematoma after starting apixaban History of present illness: 03/09: 84-year-old gentleman with history of atrial fibrillation, peripheral neuropathy, congestive heart failure, hypertension, and asthma who underwent a right inguinal hernia repair on March 04 and initiated Eliquis anticoagulation yesterday who presented to the emergency department evening with rectal bleeding. Patient reports prior to his hernia repair he was required to go see cardiology for cardiac clearance. His automatic pad making machine operator felt strongly he should be initiated on anticoagulation (reviewing his chads 2 vas score is 7, equivalent with a greater than 11% risk of stroke annually). Both he and his son were ambivalent about it but ultimately he elected to initiate Eliquis anticoagulation. He had a large inguinal hernia repair performed on March 04, which he tolerated reasonably well. He did initiate the Eliquis yesterday morning, 5 mg dose. Last evening, he developed bright red blood per rectum. He was noted to have significant bruising and swelling around his incision site and down into his scrotum and penis related to his surgery. His hemoglobin was also down from 12.2 in August of 2019 4-8.9 in the ER. He was given 1 unit of packed red blood cells. He was subsequently admitted for further care. He was seen by General surgery shortly before my visit today. He has been initiated on a bowel prep for colonoscopy tomorrow He reports that he will not go back on anticoagulation after this event, particularly as he was ambivalent to initiate anticoagulation in the 1st place. He has a remote history of DVT and having been on anticoagulation in the past and reports he had some difficulty with it at that time as well. He does not recall the specifics. He does report significant discomfort to his scrotum related to swelling and bruising. Hospital course: 03/10: Patient is still complaining of scrotal pain CT of the abdomen and pelvis performed showed a large hematoma in the scrotum patient is going for colonoscopy today cardiac arrhythmias postoperatively patient had no complications Review of systems: No chest pain palpitations No nausea vomiting diarrhea No shortness for breath cough No fevers or rigors Physical examination: Chronically morbidly ill elderly male HEENT unremarkable Heart sounds irregularly irregular Lungs with diminished breath sounds Abdomen nondistended Assessment and plan: 1. Rectal bleeding, no findings of acute bleeding on colonoscopy 03/10 * He does have a history of diverticular bleeding in the past. Certainly he could have recurrent diverticular bleeding or internal hemorrhoidal bleeding in the setting of initiation of Eliquis . 2. Acute blood loss anemia * Hemoglobin was 8.9 in the emergency department yesterday. Post 1 unit of packed red blood cells, * his hemoglobin is 7.8 this morning stable 3. Atrial fibrillation, permanent * His CHADS2 Vasc score as noted was 7. This is equivalent with a relatively high risk of stroke, greater than 11%. * His has bled score was equal to a moderate risk of major hemorrhage. * His hemorrhages score was equivalent to a high risk of major hemorrhage. * Given that he was admitted with a bleeding event after a single dose of Eliquis, he has elected not to resume anticoagulation at this time 4. Chronic congestive heart failure, unspecified * Compensated 5. Hypertension * Outpatient antihypertensive therapy has been held 6. Cardiac ectopy nonsustained ventricular tachycardia due to cardiomyopathy * He has been having asymptomatic ectopy and intermittent runs of nonsustained V-tach. BMP and magnesium levels were checked as a consequence this afternoon. No significant electrolyte abnormalities. Will continue to monitor. Code status * Full Prophylaxis * No chemical prophylaxis in the setting of rectal bleeding Disposition * Assess in the morning and probable discharge providing hemoglobin is stable Time-Based Coding 35 minutes spent with patient and on the chart (including review of chart, obtaining history, exam, reviewing outside data, placing orders, documenting exam and treatment plan, and counseling patient). Exam Vital Signs (past 8 hours): - 03/10/25 10:51 03/10/25 11:31 03/10/25 13:06 Temperature 98.9 F 97.0 F L 100 F H Pulse Rate 65 72 67 Respiratory Rate 16 22 15 Blood Pressure 115/48 L 119/63 108/59 L Pulse Oximetry 99 97 98 Oxygen Delivery Method Room Air Room Air Oxygen Flow Rate 0 03/10/25 13:14 Temperature 100.1 F H Pulse Rate 79 Respiratory Rate 18 Blood Pressure 117/56 L Pulse Oximetry 96 Oxygen Delivery Method Room Air Oxygen Flow Rate Oxygen Delivery Method Room Air Oxygen Flow Rate 0 Objective Labs 03/10/25 14:25 03/10/25 05:02 Labs: Laboratory Results - last 24 hr 03/10/25 03/10/25 05:02 14:25 WBC 7.1 RBC 2.25 L Hgb 7.5 L 7.8 L Hct 21.4 L 22.5 L MCV 94.9 MCH 33.4 MCHC 35.1 RDW 14.7 Plt Count 129 L Neut % (Auto) 63.8 Lymph % (Auto) 20.3 L [place] % (Auto) 9.9 Eos % (Auto) 4.9 H Baso % (Auto) 1.1 Neut # (Auto) 4500 Lymph # (Auto) 1400 [place] # (Auto) 700 Eos # (Auto) 300 Baso # (Auto) 100 Sodium 138 Potassium 3.1 L Chloride 105 Carbon Dioxide 26 BUN 42 H Creatinine 0.98 Estimated GFR > 60 BUN/Creatinine Ratio 42.9 H Glucose 120 H Calcium 7.6 L [facility] Medical History (Updated 03/09/25 @ 11:36 by Elieser Baca MD) History of COVID-19 Bilateral lower extremity edema Arrhythmia Asthma HTN (hypertension) Non-ischemic cardiomyopathy Chronic atrial fibrillation Valvular heart disease Heart failure PONV (postoperative nausea and vomiting) Surgical History (Updated 02/25/25 @ 12:12 by Kia Trejo RN) History of prostate surgery Hx of vein stripping Social History household members: none Assessment & Plan Time-Based Coding :: [TOTAL MINUTES] spent with patient and on the chart (including review of chart, obtaining history, exam, reviewing outside data, placing orders, documenting exam and treatment plan, and counseling patient) on [DATE].
[2025-03-10] MEDS: METOPROLOL TARTRATE 5 MG/5 ML INJ IV (17:36)
[2025-03-10] MEDS: MAGNESIUM SULFATE 1 GM/2 ML VIAL 2 GM IV (17:41)
--- NOTE | 2025-03-10 18:22 | PC.NURSE ---
1732-Patient in Vtach, rate 180s, alerted by MOLD YARD SUPERVISOR, immediately at bedside with Dr. Nails present. Pt is alert and oriented with a palpable pulse and spontaneous respirations. Code Blue called per Dr. Nails request. BP 99/56 HR 180. Pt converted to SR spontaneously. Gave IV metoprolol and IV mag per MD order. Patient remained alert and oriented throughout. BP 113/53 and heart rate 61 @ 1750. Pt requested update to son Edmond by provider and Dr. Nails notified.
[2025-03-10] MEDS: METOPROLOL ER 25 MG TABLET PO (21:35)
[2025-03-11] VITALS (10 sets, daily range): BP systolic 92–125; BP diastolic 35–65; PULSE 50–98; RESP 16–24; TEMP 36.3–37.2; O2SAT 97–100
[2025-03-11] MEDS: ACETAMINOPHEN 325 MG TABLET 650 MG PO (03:51)
--- NOTE | 2025-03-11 06:27 | P.PN_ITS ---
Subjective Subjective Date Patient Seen: 03/11/25 Time Patient Seen: 06:27 Interval history: Runs of V-tach yesterday Stable this morning Hgb 7.8 yesterday, pending this morning Tolerating diet Exam Vital Signs (past 8 hours): - 03/11/25 00:00 03/11/25 04:00 Temperature 97.5 F L 98.2 F Pulse Rate 50 L 65 Respiratory Rate 18 24 Blood Pressure 100/55 L 104/40 L Pulse Oximetry 99 97 Oxygen Flow Rate 0 0 Oxygen Delivery Method Room Air Oxygen Flow Rate 0 GI Other: ABD: soft, non-peritoneal, RIH site with large hematoma, stable Objective Labs 03/10/25 14:25 03/10/25 05:02 Labs: Laboratory Results - last 24 hr 03/10/25 14: Hgb 7.8 L Hct 22.5 L PFSH Medical History (Updated 03/09/25 @ 11:36 by Elieser Baca MD) History of COVID-19 Bilateral lower extremity edema Arrhythmia Asthma HTN (hypertension) Non-ischemic cardiomyopathy Chronic atrial fibrillation Valvular heart disease Heart failure PONV (postoperative nausea and vomiting) Surgical History (Updated 02/25/25 @ 12:12 by Kia Trejo RN) History of prostate surgery Hx of vein stripping Social History household members: none Assessment & Plan Assessment and plan (1) BRBPR (bright red blood per rectum): Status: Acute Plan Stable No ongoing clinical bleeding Check h/h this morning LGI bleed likely related to diverticulosis, thinners Time-Based Coding :: [TOTAL MINUTES] spent with patient and on the chart (including review of chart, obtaining history, exam, reviewing outside data, placing orders, documenting exam and treatment plan, and counseling patient) on [DATE]. PROFEE Floating Labor Gang Supervisor Document charge(s): Yes Charge Codes Subsequent inpatient/observation care: [id number]
[2025-03-11] MEDS: PANTOPRAZOLE 40 MG VIAL IV (06:30)
[2025-03-11 06:49] LABS: Hematocrit 21.2 % (41-53); Hemoglobin 7.4 g/dL (13.5-17.5); Mean Corpuscular HGB Conc 34.8 % (30-36); Mean Corpuscular Hemoglobin 33.5 PG (26-34); Mean Corpuscular Volume 96.2 fL (80-100); Platelet Count 153 X10^3/uL (150-400)
[2025-03-11 07:09] LABS: Blood Urea Nitrogen 34 mg/dL (9-20); Calcium 7.4 mg/dL (8.4-10.2); Carbon Dioxide 26 mmol/L (22-32); Chloride 104 mmol/L (98-107); Estimated Glomerular Filt Rate > 60 mL/min (>60); Glucose 117 mg/dL (70-99); HEMOLYSIS < 15 (0-50); Potassium 3.5 mmol/L (3.4-5.1); Sodium 135 mmol/L (137-145)
[2025-03-11 07:10] LABS: Magnesium 2.3 mg/dL (1.6-2.3)
[2025-03-11] MEDS: POTASSIUM CHLORIDE 10 MEQ TAB PO (09:10)
--- NOTE | 2025-03-11 11:13 | P.DS_ITS ---
History of Present Illness History of Present Illness Date Patient Seen: 03/11/25 Chief complaint: Rectal Bleeding Narrative: Chief complaint: Rectal bleeding and pain and scrotal swelling from large hematoma after starting apixaban History of present illness: 03/09: 84-year-old gentleman with history of atrial fibrillation, peripheral neuropathy, congestive heart failure, hypertension, and asthma who underwent a right inguinal hernia repair on March 04 and initiated Eliquis anticoagulation yesterday who presented to the emergency department evening with rectal bleeding. Patient reports prior to his hernia repair he was required to go see cardiology for cardiac clearance. His senior etl developer felt strongly he should be initiated on anticoagulation (reviewing his chads 2 vas score is 7, equivalent with a greater than 11% risk of stroke annually). Both he and his son were ambivalent about it but ultimately he elected to initiate Eliquis anticoagulation. He had a large inguinal hernia repair performed on March 04, which he tolerated reasonably well. He did initiate the Eliquis yesterday morning, 5 mg dose. Last evening, he developed bright red blood per rectum. He was noted to have significant bruising and swelling around his incision site and down into his scrotum and penis related to his surgery. His hemoglobin was also down from 12.2 in August of 2019 4-8.9 in the ER. He was given 1 unit of packed red blood cells. He was subsequently admitted for further care. He was seen by General surgery shortly before my visit today. He has been initiated on a bowel prep for colonoscopy tomorrow He reports that he will not go back on anticoagulation after this event, particularly as he was ambivalent to initiate anticoagulation in the 1st place. He has a remote history of DVT and having been on anticoagulation in the past and reports he had some difficulty with it at that time as well. He does not recall the specifics. He does report significant discomfort to his scrotum related to swelling and bruising. Hospital course: 03/10: Patient is still complaining of scrotal pain CT of the abdomen and pelvis performed showed a large hematoma in the scrotum patient is going for colonoscopy today cardiac arrhythmias postoperatively patient had no complications 5:30 p.m.: Patient went into ventricular tachycardia rate 190 limited code was called patient given IV Lopressor 5 mg and IV magnesium to mg and ventricular arrhythmias resolved and now in a sinus rhythm 74 03/11: Patient hypotensive this morning though not symptomatic 100/40 dose of metoprolol was held as was the metolazone patient feeling tired but feels ready to go home but hemoglobin is 7.4 and we will transfuse 1 unit for improved oxygen carrying capacity in his sitting of chronic cardiomyopathy atrial fibrillation recent recurrent ventricular tachycardia Review of systems: No chest pain palpitations No nausea vomiting diarrhea No shortness for breath cough No fevers or rigors Physical examination: Chronically morbidly ill elderly male HEENT unremarkable Heart sounds irregularly irregular Lungs with diminished breath sounds Abdomen nondistended Assessment and plan: 1. Rectal bleeding, no findings of acute bleeding on colonoscopy 03/10 * He does have a history of diverticular bleeding in the past. Certainly he could have recurrent diverticular bleeding or internal hemorrhoidal bleeding in the setting of initiation of Eliquis . 2. Acute blood loss anemia * Hemoglobin was 8.9 in the emergency department yesterday. Post 1 unit of packed red blood cells, * his hemoglobin is 7.8 this morning stable 3. Atrial fibrillation, permanent * His CHADS2 Vasc score as noted was 7. This is equivalent with a relatively high risk of stroke, greater than 11%. * His has bled score was equal to a moderate risk of major hemorrhage. * His hemorrhages score was equivalent to a high risk of major hemorrhage. * Given that he was admitted with a bleeding event after a single dose of Eliquis, he has elected not to resume anticoagulation at this time 4. Chronic congestive heart failure, unspecified * Compensated 5. Hypertension * Outpatient antihypertensive therapy has been held 6. Cardiac ectopy nonsustained ventricular tachycardia due to cardiomyopathy * He has been having asymptomatic ectopy and intermittent runs of nonsustained V-tach. BMP and magnesium levels were checked as a consequence this afternoon. No significant electrolyte abnormalities. Will continue to monitor. Code status * Full Prophylaxis * No chemical prophylaxis in the setting of rectal bleeding Disposition * Assess in the morning and probable discharge providing hemoglobin is stable Time-Based Coding 35 minutes spent with patient and on the chart (including review of chart, obtaining history, exam, reviewing outside data, placing orders, documenting exam and treatment plan, and counseling patient). Discharge Providers Provider Date of admission: 03/09/25 00:11 Discharge Date: 03/11/25 Primary care physician: Carolina Fowler Consults: 03/10/25 15:58 Consult to Physical Therapy Evaluate & Treat Comment: Physician Instructions: Evaluate and Treat Discharge provider: Brayden Nails MD Exam Vital Signs (past 8 hours): - 03/11/25 04:00 Temperature 98.2 F Pulse Rate 65 Respiratory Rate 24 Blood Pressure 104/40 L Pulse Oximetry 97 Oxygen Flow Rate 0 Oxygen Delivery Method Room Air Oxygen Flow Rate 0 Objective Labs 03/11/25 05:59 03/11/25 05:59 Labs: Laboratory Results - last 24 hr 03/08/25 03/10/25 03/11/25 23:15 14:25 05:59 WBC 7.3 RBC 2.20 L Hgb 7.8 L 7.4 L Hct 22.5 L 21.2 L MCV 96.2 MCH 33.5 MCHC 34.8 RDW 15.0 H Plt Count 153 Sodium 135 L Potassium 3.5 Chloride 104 Carbon Dioxide 26 BUN 34 H Creatinine 0.99 Estimated GFR > 60 BUN/Creatinine Ratio 34.3 H Glucose 117 H Calcium 7.4 L Magnesium 2.3 Blood Type O Positive Antibody Screen Negative Crossmatch See Detail PFSH Medical History (Updated 03/09/25 @ 11:36 by Elieser Baca MD) History of COVID-19 Bilateral lower extremity edema Arrhythmia Asthma HTN (hypertension) Non-ischemic cardiomyopathy Chronic atrial fibrillation Valvular heart disease Heart failure PONV (postoperative nausea and vomiting) Surgical History (Updated 02/25/25 @ 12:12 by Kia Trejo RN) History of prostate surgery Hx of vein stripping Social History household members: none Discharge Plan Discharge Plan Patient Disposition: Home Discharge orders & Medications Prescriptions: New pantoprazole [Protonix] 40 mg tablet,delayed release (DR/EC) 40 mg PO DAILY Qty: 30 1RF Continued metolazone 2.5 mg tablet 2.5 mg PO DAILY gabapentin 300 mg capsule 300 mg PO PRN potassium chloride 10 mEq tablet extended release 10 meq PO DAILY oxycodone 5 mg capsule 5 mg PO Q4H PRN (Reason: pain) Qty: 20 0RF Discontinued Eliquis 5 mg tablet 5 mg PO BID Patient Comments: has not yet started. new prescription Follow up/Referrals: Carolina Fowler [Primary Care Provider, Medical] Visit Report/Discharge Packet Stand Alone Forms: Patient Portal/API, Stroke Signs & Symptoms Discharge Data Primary Care Provider: Carolina Fowler
[2025-03-11] MEDS: POTASSIUM CHLORIDE 20 MEQ TAB PO (12:56)
--- NOTE | 2025-03-11 13:17 | PT-IP ANOTE ---
PT went to eval pt however he was just getting started with blood transfusion so not able to do PT eval at this time
[2025-03-11] MEDS: GABAPENTIN 300 MG CAPSULE PO (15:05)
--- NOTE | 2025-03-11 16:19 | CM.DPNOTE ---
DCP Continued: Reviewed EMR and team rounds for pt?s medical status. Per hospitalist, pt will need 1 unit of blood and will re-evaluate if he can discharge afterwards. Per RN, pt not out of bed in the last 24 hours and would benefit from at least a PT evaluation to determine discharge plans. Per PT, attempted to complete evaluation but on hold now due to pt getting blood infused. PLASTICS SHEET FINISHING PRESS OPERATOR entered room, introduced self and role, while at end of blood infusion. Present in the room is pt's son, Edmond (visiting from [place] to assist with pt recovery). Patient states he feels weak and is hoping to wait until the blood kicks in before going home; requested to discharge tomorrow morning. PLASTICS SHEET FINISHING PRESS OPERATOR discussed pending PT evaluation and possible home health referral vs. SNF Rehab. Pt declines both, feels his son can assist him during recovery at home. Plan: Anticipating discharge home with son on 03/12 or when medically cleared. CM Team will continue to follow for coordination of discharge plans. NIURKA Chua
[2025-03-12 04:07] VITALS: BP 118/37; PULSE 54; RESP 16; TEMP 36.9; O2SAT 97
[2025-03-12 04:24] VITALS: BP 115/52; PULSE 60; RESP 18; TEMP 36.9; O2SAT 97
[2025-03-12] MEDS: PANTOPRAZOLE 40 MG VIAL IV (05:30)
[2025-03-12 06:30] LABS: Blood Urea Nitrogen 33 mg/dL (9-20); Calcium 7.7 mg/dL (8.4-10.2); Carbon Dioxide 25 mmol/L (22-32); Chloride 103 mmol/L (98-107); Estimated Glomerular Filt Rate > 60 mL/min (>60); Glucose 117 mg/dL (70-99); HEMOLYSIS < 15 (0-50); Magnesium 2.3 mg/dL (1.6-2.3); Potassium 3.6 mmol/L (3.4-5.1); Sodium 132 mmol/L (137-145)
[2025-03-12 07:56] VITALS: BP 102/48; PULSE 67; RESP 16; TEMP 36.7; O2SAT 98
[2025-03-12 08:15] LABS: Add Manual Diff / Slide Review NO; Hematocrit 23.6 % (41-53); Hemoglobin 8.2 g/dL (13.5-17.5); Lymphocytes Absolute Auto 1800 /uL (1100-4500); Mean Corpuscular HGB Conc 34.9 % (30-36); Mean Corpuscular Hemoglobin 33.4 PG (26-34); Mean Corpuscular Volume 95.7 fL (80-100); Platelet Count 162 X10^3/uL (150-400)
--- NOTE | 2025-03-12 08:42 | DI.RAD.S_ITS ---
PROCEDURE: XR CHEST 1V INDICATIONS: Evaluate for pulmonary edema TECHNIQUE: One view of the chest was acquired. COMPARISON: [facility], , XR CHEST 1V, 09/14/2023, 9:59. FINDINGS: Surgical changes and devices: None. Lungs and pleura: Right apical opacity is mildly decreased compared to prior.. No pleural effusions or pneumothorax. Mediastinum: Mediastinal contours appear normal. Heart size is enlarged. Bones and chest wall: No suspicious bony lesions. Overlying soft tissues appear unremarkable. IMPRESSION: No definite findings concerning for pulmonary edema. Cardiomegaly. Right apical opacity appears less pronounced than prior imaging but still present. Recommend follow-up chest x-ray to ensure stability or consider nonurgent CT for further evaluation. Dictated by: Martinez Young M.D. on 03/12/2025 at 9:30 Approved by: Martinez Young M.D. on 03/12/2025 at 9:33
--- NOTE | 2025-03-12 08:55 | PT-IP ANOTE ---
Will hold Physical Therapy evaluation this morning and check back later today. Pt has echo and Troponins ordered this AM. Discussed case with his nurse who reports pt has been getting up to the chair with nursing during this admission.
[2025-03-12] MEDS: POTASSIUM CHLORIDE 10 MEQ TAB PO (08:57)
[2025-03-12 09:10] LABS: NT-proBNP (BNP-Adult 18+) 4890 pg/mL (<450); Troponin I 0.051 ng/mL (0.01-0.034)
--- NOTE | 2025-03-12 09:25 | DI.ECHO.S_ITS ---
[facility] +---------+ Hospital : : [address] : : [place] : : [id number] : : Phone: [phone] Echocardiogram Report + + :Name: ELLE GOMEZ Study Date: 03/12/2025 Height: 76 in : :[facility] ReadingLocation: Weight: 272 lb : : Gender: Male BSA: 2.5 m2 : :: 1940 Age: 84 yrs BP: 102/48 mmHg: :Reason For Study: Left Ventricular Systolic Dysfunction : :Ordering Physician: KEN : :BRIANA Performed By: Delilah Dolan : :Referring: BRIANA ROGERS : + + Interpretation Summary The left ventricle is normal in size and wall thickness. The ejection fraction is estimated to be 50-55%. There are no obvious focal wall motion abnormalities noted but poor endocardial definition reduces the sensitivity for the detection of such. There has been no significant change since the previous exam. Diastolic function could not be accurately assessed due to atrial fibrillation. The right ventricle is mildly dilated. Right ventricular systolic function is borderline reduced. The right ventricular systolic pressure is estimated to be at least 37 mmHg based on an estimated right atrial pressure of 8 mm Hg. The left atrium is severely dilated. The right atrium is severely dilated. There is mild to moderate mitral regurgitation. There is severe tricuspid regurgitation. Procedure: A two-dimensional transthoracic echocardiogram with color flow and Doppler was performed in limited views only to assess LV function. The study quality was technically adequate. Comparison is made with the echocardiogram of 02-26-25. The heart rate ranged between 62-79 bpm during the study. Left Ventricle: The left ventricle is normal in size and wall thickness. The ejection fraction is estimated to be 50-55%. There has been no significant change since the previous exam. There are no obvious focal wall motion abnormalities noted but poor endocardial definition reduces the sensitivity for the detection of such. Diastolic function could not be accurately assessed due to atrial fibrillation. Right Ventricle: The right ventricle is mildly dilated. Right ventricular systolic function is borderline reduced. Atria: The left atrium is severely dilated. The right atrium is severely dilated. The interatrial septum grossly appears intact with no obvious evidence for an atrial septal defect. Mitral Valve: The mitral valve leaflets appear mildly thickened. There is mild to moderate mitral regurgitation. Aortic Valve: The aortic valve opens well. There is no aortic valve stenosis. Tricuspid Valve: The tricuspid valve leaflets are thickened and/or calcified, but open well. There is severe tricuspid regurgitation. The right ventricular systolic pressure is estimated to be at least 37 mmHg based on an estimated right atrial pressure of 8 mm Hg. Pulmonic Valve: The pulmonic valve is not well visualized. Great Vessels: The IVC is dilated (diameter is greater than 2.1 cm) yet it collapses greater than 50% with a sniff. This suggests a right atrial pressure of 8 mm Hg. Pericardium/ Pleura There is no pericardial effusion. There is no pleural effusion. MMode/2D Measurements & Calculations LVIDd: 5.4 cm LA A2 area: 81.3 cm2 LVIDs: 3.3 cm LA A4 area: 69.7 cm2 FS: 39.6 % LA length (vol): 11.1 cm IVSd: 0.94 cm LA vol: 432.2 ml LVPWd: 0.88 cm LA vol index: 171.2 ml/m2 LV casiano. diameter/BSA (cm/m^2): 2.1 LV sys. diameter/BSA (cm/m^2): 1.3 RA long axis: 9.3 cm RA area: 60.6 cm2 RA vol: 334.3 ml RA : 132.4 ml/m2 IVC diam: 2.6 cm Doppler Measurements & Calculations Ao V2 max: 159.5 cm/sec TR max luciana: 269.2 cm/sec Ao V2 mean: 117.8 cm/sec TR max P.2 mmHg Ao max P.2 mmHg Ao mean P.0 mmHg Ao V2 VTI: 35.0 cm Reading Physician:01:06 PM
[2025-03-12 11:00] VITALS: BP 104/42; PULSE 69; RESP 16; TEMP 36.6; O2SAT 97
--- NOTE | 2025-03-12 13:24 | P.DS_ITS ---
History of Present Illness History of Present Illness Chief complaint: Rectal Bleeding Narrative: Chief complaint: Rectal bleeding and pain and scrotal swelling from large hematoma after starting apixaban History of present illness: 03/09: 84-year-old gentleman with history of atrial fibrillation, peripheral neuropathy, congestive heart failure, hypertension, and asthma who underwent a right inguinal hernia repair on March 04 and initiated Eliquis anticoagulation yesterday who presented to the emergency department evening with rectal bleeding. Patient reports prior to his hernia repair he was required to go see cardiology for cardiac clearance. His piano assembler felt strongly he should be initiated on anticoagulation (reviewing his chads 2 vas score is 7, equivalent with a greater than 11% risk of stroke annually). Both he and his son were ambivalent about it but ultimately he elected to initiate Eliquis anticoagulation. He had a large inguinal hernia repair performed on March 04, which he tolerated reasonably well. He did initiate the Eliquis yesterday morning, 5 mg dose. Last evening, he developed bright red blood per rectum. He was noted to have significant bruising and swelling around his incision site and down into his scrotum and penis related to his surgery. His hemoglobin was also down from 12.2 in August of 2019 4-8.9 in the ER. He was given 1 unit of packed red blood cells. He was subsequently admitted for further care. He was seen by General surgery shortly before my visit today. He has been initiated on a bowel prep for colonoscopy tomorrow He reports that he will not go back on anticoagulation after this event, particularly as he was ambivalent to initiate anticoagulation in the 1st place. He has a remote history of DVT and having been on anticoagulation in the past and reports he had some difficulty with it at that time as well. He does not recall the specifics. He does report significant discomfort to his scrotum related to swelling and bruising. Hospital course: 03/10: Patient is still complaining of scrotal pain CT of the abdomen and pelvis performed showed a large hematoma in the scrotum patient is going for colonoscopy today cardiac arrhythmias postoperatively patient had no complications 5:30 p.m.: Patient went into ventricular tachycardia rate 190 limited code was called patient given IV Lopressor 5 mg and IV magnesium to mg and ventricular arrhythmias resolved and now in a sinus rhythm 74 03/11: Patient hypotensive this morning though not symptomatic 100/40 dose of metoprolol was held as was the metolazone patient feeling tired but feels ready to go home but hemoglobin is 7.4 and we will transfuse 1 unit for improved oxygen carrying capacity in his sitting of chronic cardiomyopathy atrial fibrillation recent recurrent ventricular tachycardia 03/12: Patient has had no more episodes of hypotension felt better after 1 unit of packed red blood cells transfusion echocardiogram and chest x-ray are clear patient does have some significant bilateral lower extremity edema patient will be discharged home resume his diuretic at home Repeat echocardiogram shows no change: Interpretation Summary The left ventricle is normal in size and wall thickness. The ejection fraction is estimated to be 50-55%. There are no obvious focal wall motion abnormalities noted but poor endocardial definition reduces the sensitivity for the detection of such. There has been no significant change since the previous exam. Diastolic function could not be accurately assessed due to atrial fibrillation. The right ventricle is mildly dilated. Right ventricular systolic function is borderline reduced. The right ventricular systolic pressure is estimated to be at least 37 mmHg based on an estimated right atrial pressure of 8 mm Hg. Review of systems: No chest pain palpitations No nausea vomiting diarrhea No shortness for breath cough No fevers or rigors Physical examination: Chronically morbidly ill elderly male HEENT unremarkable Heart sounds irregularly irregular Lungs with diminished breath sounds Abdomen nondistended Assessment and plan: 1. Rectal bleeding, no findings of acute bleeding on colonoscopy 03/10 * He does have a history of diverticular bleeding in the past. Certainly he could have recurrent diverticular bleeding or internal hemorrhoidal bleeding in the setting of initiation of Eliquis . 2. Acute blood loss anemia * Hemoglobin was 8.9 in the emergency department yesterday. Post 1 unit of packed red blood cells, * his hemoglobin is 7.8 this morning stable 3. Atrial fibrillation, permanent * His CHADS2 Vasc score as noted was 7. This is equivalent with a relatively high risk of stroke, greater than 11%. * His has bled score was equal to a moderate risk of major hemorrhage. * His hemorrhages score was equivalent to a high risk of major hemorrhage. * Given that he was admitted with a bleeding event after a single dose of Eliquis, he has elected not to resume anticoagulation at this time 4. Chronic congestive heart failure, unspecified * Compensated 5. Hypertension * Outpatient antihypertensive therapy has been held 6. Cardiac ectopy nonsustained ventricular tachycardia due to cardiomyopathy * He has been having asymptomatic ectopy and intermittent runs of nonsustained V-tach. BMP and magnesium levels were checked as a consequence this afternoon. No significant electrolyte abnormalities. Will continue to monitor. Code status * Full Prophylaxis * No chemical prophylaxis in the setting of rectal bleeding Disposition * Discharge to home Time-Based Coding 35 minutes spent with patient and on the chart (including review of chart, obtaining history, exam, reviewing outside data, placing orders, documenting exam and treatment plan, and counseling patient). Discharge Providers Provider Date of admission: 03/09/25 00:11 Discharge Date: 03/12/25 Primary care physician: Carolina Fowler Consults: 03/10/25 15:58 Consult to Physical Therapy Evaluate & Treat Comment: Physician Instructions: Evaluate and Treat Discharge provider: Brayden Nails MD Exam Vital Signs (past 8 hours): - 03/12/25 07:56 03/12/25 11:00 Temperature 98.1 F 97.9 F Pulse Rate 67 69 Respiratory Rate 16 16 Blood Pressure 102/48 L 104/42 L Pulse Oximetry 98 97 Oxygen Delivery Method Room Air Oxygen Flow Rate 0 Objective Labs 03/12/25 08:00 03/12/25 06:08 Labs: Laboratory Results - last 24 hr 03/08/25 03/12/25 03/12/25 23:15 06:08 08:00 WBC 8.2 RBC 2.46 L Hgb 8.2 L Hct 23.6 L MCV 95.7 MCH 33.4 MCHC 34.9 RDW 15.5 H Plt Count 162 Neut % (Auto) 65.0 Lymph % (Auto) 22.[address] [place] % (Auto) 7.8 Eos % (Auto) 4.1 H Baso % (Auto) 1.0 Neut # (Auto) 5300 Lymph # (Auto) 1800 [place] # (Auto) 600 Eos # (Auto) 300 Baso # (Auto) 100 Sodium 132 L Potassium 3.6 Chloride 103 Carbon Dioxide 25 BUN 33 H Creatinine 0.98 Estimated GFR > 60 BUN/Creatinine Ratio 33.7 H Glucose 117 H Calcium 7.7 L Magnesium 2.3 Troponin I 0.051 H NT-Pro-B Natriuret Pep 4890 H Crossmatch See Detail [facility] Medical History (Updated 03/09/25 @ 11:36 by Elieser Baca MD) History of COVID-19 Bilateral lower extremity edema Arrhythmia Asthma HTN (hypertension) Non-ischemic cardiomyopathy Chronic atrial fibrillation Valvular heart disease Heart failure PONV (postoperative nausea and vomiting) Surgical History (Updated 02/25/25 @ 12:12 by Kia Trejo RN) History of prostate surgery Hx of vein stripping Social History household members: none Discharge Plan Discharge Plan Patient Disposition: Home Discharge orders & Medications Prescriptions: New pantoprazole [Protonix] 40 mg tablet,delayed release (DR/EC) 40 mg PO DAILY Qty: 30 1RF Continued metolazone 2.5 mg tablet 2.5 mg PO DAILY gabapentin 300 mg capsule 300 mg PO PRN potassium chloride 10 mEq tablet extended release 10 meq PO DAILY oxycodone 5 mg capsule 5 mg PO Q4H PRN (Reason: pain) Qty: 20 0RF Discontinued Eliquis 5 mg tablet 5 mg PO BID Patient Comments: has not yet started. new prescription Follow up/Referrals: Carolina Fowler [Primary Care Provider, Medical] Visit Report/Discharge Packet Stand Alone Forms: Patient Portal/API, Stroke Signs & Symptoms Discharge Data Primary Care Provider: Carolina Fowler
--- NOTE | 2025-03-12 14:37 | PT-IP ANOTE ---
Spoke with Jared at bedside. He feels safe to discharge home today with his Son. He reports he will be staying on the first floor of his home at discharge and his Son will be staying to help him. He feels safe ambulating with the FWW and his Son's assistance. He reports no Physical Therapy needs at this time. He is waiting on his Son to pick him up for discharge home.
== END 2025-03-12 15:40 | disposition home or self-care (01) | DRG 378 ==
LOC: ED 23:43 → AC 03-09 00:11
PROVIDERS: Family Medicine; Internal Medicine; Pharmacist Pharmacist Clinician (PhC)/ Clinical Pharmacy Specialist; Surgery; Admitting Provider Internal Medicine; Emergency Provider Emergency Medicine; PCP Physician Assistant Medical; Referring Provider Emergency Medicine; Visit Provider Internal Medicine
PROC: 0DJD8ZZ Inspection of Lower Intestinal Tract, Via Natural or Artificial Opening Endoscopic (ICD-10-PCS; CPT 45378; principal; 2025-03-10 15:45)
DX: K57.31 Diverticulosis of large intestine without perforation or abscess with bleeding (principal); D62 Acute posthemorrhagic anemia; I48.21 Permanent atrial fibrillation; I42.9 Cardiomyopathy, unspecified; I47.20 Ventricular tachycardia, unspecified; D68.32 Hemorrhagic disorder due to extrinsic circulating anticoagulants; I48.91 Unspecified atrial fibrillation; I50.9 Heart failure, unspecified; I11.0 Hypertensive heart disease with heart failure; K64.8 Other hemorrhoids; N50.1 Vascular disorders of male genital organs; I95.9 Hypotension, unspecified; T45.515A Adverse effect of anticoagulants, initial encounter; Z79.01 Long term (current) use of anticoagulants; Z98.890 Other specified postprocedural states; Z87.19 Personal history of other diseases of the digestive system; Z86.718 Personal history of other venous thrombosis and embolism
CPT/HCPCS: 36415; 36430; 71045; 74176; 80048; 80053; 83735; 83880; 84484; 85014; 85018; 85025; 85027; 85610; 85730; 86850; 86900; 86901; 93307; 99284; P9016; J2270; J2470; J3475; J7030; J7120

== ENCOUNTER 2025-03-22 23:19 | Emergency (ER) | payer MEDICARE, SELFPAY ==
[2025-03-09 02:33] VITALS: BMI 33.9
[2025-03-22 23:21] VITALS: BP 136/63; PULSE 74; RESP 18; TEMP 37.3; O2SAT 98; BMI 33.0
--- NOTE | 2025-03-22 23:24 | ED_ITS ---
HPI - Arrhythmia/Palpitations General Chief Complaint: Chest Pain Stated Complaint: CP/lightheaded Time Seen by Provider: 03/22/25 23:24 History of Present Illness HPI narrative: 84-year-old male with a past medical history of rate controlled AFib not on any blood thinners due to history of lower GI bleed follows with Dr. Gibbons of Cardiology at [facility], comes into the ED from home via EMS for evaluation of palpitations lightheaded dizziness, according to the patient he started feeling these symptoms a few hours ago, medics arrived and noted patient was in SVT hypotensive, they did give 6 mg of adenosine followed by 12 mg of adenosine without any change therefore patient was cardioverted, patient now rate controlled atrial fibrillation he states that he is now having no symptoms denies any headache visual disturbance dizziness chest pain shortness breath fever chills nausea vomiting abdominal pain or any other GI/ symptoms at this time. He states that he is feels completely back to normal. States that he is supposed to see his public health social worker on the 03 of April. He states that this is for follow up. Related Data Home Medications ?Medication ?Instructions ?Recorded ?Confirmed gabapentin 300 mg capsule 300 mg PO PRN 01/01/2503/09 metolazone 2.5 mg tablet 2.5 mg PO DAILY 01/01/25 potassium chloride 10 mEq 10 meq PO DAILY 03/04/25 tablet,extended release Previous Rx's ?Medication ?Instructions ?Recorded oxycodone 5 mg capsule 5 mg PO Q4H PRN pain #20 cap s 03/04/25 pantoprazole 40 mg tablet,delayed 40 mg PO DAILY #30 t abs 03/11/25 release (Protonix) Allergies Allergy/AdvReac Type Severity Reaction Status Date / Time adhesive tape Allergy Severe rash, Verified 03/22/25 23:21 blister latex Allergy Severe hives, Verified 03/22/25 23:21 blister Beef Containing Products Allergy Hives Verified 03/22/25 23:21 kiwi Allergy Hives Verified 03/22/25 23:21 nectarine Allergy Hives Verified 03/22/25 23:21 peach Allergy Hives Verified 03/22/25 23:21 Penicillins Allergy Hives Verified 03/22/25 23:21 shellfish derived Allergy Hives Verified 03/22/25 23:21 Coban Allergy Mild Uncoded 03/22/25 23:21 blood thinners AdvReac Unknown Uncoded 03/22/25 23:21 Review of Systems Review of Systems Narrative: General: Denies fever, chills, weight loss HEENT: Denies headache, eye drainage, eye irritation, head trauma, sore throat, voice change Cardiovascular: Positive palpitations Denies any chest pain, tachycardia Respiratory: Denies any shortness of breath, cough, wheeze, stridor GI/: Denies any abdominal pain, nausea, vomiting, diarrhea, bright red blood per rectum, melanotic stools, urinary frequency, urinary retention, dysuria, hematuria MSK: Denies any joint pain, muscle pains, swelling Skin: Denies any rashes, lesions, discoloration Neuro: Denies any headache, lightheadedness, dizziness, fainting, weakness Psych: Denies SI/HI Patient History Medical History (Updated 03/23/25 @ 00:59 by Royce Giles DO) History of COVID-19 Bilateral lower extremity edema Arrhythmia Asthma HTN (hypertension) Non-ischemic cardiomyopathy Chronic atrial fibrillation Valvular heart disease Heart failure PONV (postoperative nausea and vomiting) Surgical History (Updated 02/25/25 @ 12:12 by Kia Trejo RN) History of prostate surgery Hx of vein stripping Social History household members: none Smoking Status: Never smoker alcohol intake frequency: 0-2 drinks per day Exam Narrative Exam Narrative: General: Cooperative, well-developed, not in acute distress HEENT: Normocephalic, atraumatic, PERRLA, normal sclera, eyelids normal Neck: Active full range of motion, atraumatic Chest: Normal to inspection, negative crepitus, no overlying erythema ecchymosis Respiratory: Normal respiratory effort, not in acute respiratory distress, clear to auscultation bilaterally negative cough, wheeze, tachypnea, rhonchi, rales Cardiology: Irregularly irregular gallop, murmur, rubs GI/: No tenderness to palpation, soft, non rigid, normal to inspection, exam deferred MSK: Full active range of motion in all 4 extremities, atraumatic, no tenderness to palpation of any bony prominences Skin: No rashes or lesions noted Neuro: Alert awake oriented x3, moves all 4 extremities spontaneously, cranial nerves intact, able to answer all questions appropriately follows commands appropriately Psych: Cooperative, negative suicidal or homicidal ideations Initial Vital Signs Initial Vital Signs: Vital Signs Temperature 99.1 F 03/22/25 23:21 Pulse Rate 74 03/22/25 23:21 Respiratory Rate 18 03/22/25 23:21 Blood Pressure 136/63 03/22/25 23:21 Pulse Oximetry 98 03/22/25 23:21 Oxygen Delivery Method Room Air 03/22/25 23:21 Course Orders Ordered: ED Orders 03/22/25 23:20 EKG-12 Lead Stat 03/22/25 23:28 XR chest 1V Stat 03/22/25 23:39 Complete Blood Count AUTO DIFF Stat Comprehensive Metabolic Panel Stat Lipase Stat Magnesium Stat NT-proBNP (BNP-Adult 18+) Stat TSH w/ Reflex to FT4 Stat Troponin & CK Cardiac Panel Stat 03/23/25 00:20 EKG-12 Lead Stat 03/23/25 01:40 Troponin & CK Cardiac Panel Stat Discontinued Medications Magnesium Sulfate (Magnesium Sulfate) 2 gm in 50 mls @ 150 mls/hr IV NOW ONE Stop: 03/22/25 23:48 Last Infusion: 03/23/25 00:11 Dose: Infused Documented By: IVONNE Co-signed By: Admin: 03/22/25 23:47 Dose: 150 mls/hr Documented By: IVONNE Co-signed By: Vital Signs Vital signs: Vital Signs - 8 hr 03/22/25 23:21 Temperature 99.1 F Pulse Rate 74 Respiratory Rate 18 Blood Pressure 136/63 Pulse Oximetry 98 Oxygen Delivery Method Room Air MDM - Arrhythmia/Palpitations Lab Data 03/23/25 00:08 03/22/25 23:39 Labs: Lab Results 03/22/25 03/23/25 Range/Units 23:39 00:08 WBC 7.4 (4.5-11.0) X10^3/uL RBC 2.86 L (4.5-5.9) X10^6/uL Hgb 9.5 L (13.5-17.5) g/dL Hct 28.0 L (41-53) % MCV 97.8 (80-100) fL MCH 33.1 (26-34) PG MCHC 33.8 (30-36) % RDW 16.1 H (11.6-14.8) % Plt Count 201 (150-400) X10^3/uL Neut % (Auto) 80.2 H (50-75) % Lymph % (Auto) 12.7 L (25-40) % Ritchie % (Auto) 6.7 (3-14) % Eos % (Auto) 0.0 L (2-4) % Baso % (Auto) 0.4 (0-2) % Neut # (Auto) 5900 (1148-2759) /uL Lymph # (Auto) 900 L (5234-3955) /uL Ritchie # (Auto) 500 (0-900) /uL Eos # (Auto) 0 (0-450) /uL Baso # (Auto) 0 (0-100) /uL Sodium 139 (137-145) mmol/L Potassium 3.7 (3.4-5.1) mmol/L Chloride 103 (98-107) mmol/L Carbon Dioxide 27 (22-32) mmol/L BUN 41 H (9-20) mg/dL Creatinine 1.28 H (0.66-1.25) mg/dL Estimated GFR 55 L (>60) mL/min BUN/Creatinine Ratio 32.0 H (6-22) Glucose 190 H (70-99) mg/dL Calcium 8.5 (8.4-10.2) mg/dL Magnesium 1.9 (1.6-2.3) mg/dL Total Bilirubin 1.0 (0.2-1.3) mg/dL AST 47 (17-59) IU/L ALT 22 (<50) IU/L Alkaline Phosphatase 159 H (38-126) U/L Total Creatine Kinase < 20 L (55-170) U/L Troponin I 0.079 H (0.01-0.034) ng/mL NT-Pro-B Natriuret Pep 3690 H (<450) pg/mL Total Protein 7.3 (6.3-8.2) g/dL Albumin 3.6 (3.5-5.0) g/dL Globulin 3.7 (1.7-4.1) g/dL Albumin/Globulin Ratio 1.0 (1.0-2.8) Lipase 67 (23-300) U/L ECG Data Interpretation: EKG interpreted by ED physician, atrial fibrillation 82 beats per minute QTC 539, normal axis nonspecific ST changes occasional PVC noted no STEMI Repeat EKG atrial fibrillation 62 beats per minute, QTC 456, right axis deviation, nonspecific ST changes no STEMI occasional PVC noted MDM Narrative Medical decision making narrative: 84-year-old male with a past medical history of AFib not on any rate control medication or anticoagulation given history of lower GI bleed presents to the emergency department from home via EMS for evaluation of palpitations lightheaded dizziness started 2 hours prior to arrival, according to medics when they arrived he was in SVT they did attempt adenosine gave a total of 18 mg however patient remained slightly hypertensive symptomatic therefore decision was made to cardiovert the patient, patient was cardioverted successfully with 100 joules according to medics. Patient then remained rate controlled in atrial fibrillation, at time of my initial evaluation patient stating he feels completely back to normal. He denies any chest pain shortness of breath. He states that he follows with Dr. Gibbons of Cardiology at [facility]. Supposed to see him in April 03 for a follow up with supposed to get a echocardiogram at that time. Time of initial evaluation patient EKG does appear AFib at 82, QTC 539, multiple PVCs noted. Patient without any leukocytosis patient Chem panel unremarkable, patient did have slight elevation in his BNP at 3690 but patient without any chest pain shortness of breath, also had slight elevation in his initial troponin 0.079 however this is most likely demand ischemia secondary to patient recently in SVT requiring cardioversion. He has no active chest pain shortness of breath, he has remained rate controlled after 2 g of magnesium, I had a discussion with Dr. Hallman of cardiology who reviewed the case and agrees that the patient without any active chest pain no shortness of breath and indeterminate troponin most likely secondary to the demand ischemia from SVT and cardioversion patient would be okay for outpatient follow up and strict return precautions, I did offer admission to the patient however he states he does feel better feels comfortable following up with Dr. Gibbons of Cardiology, he verbalized understanding of this and agrees to being discharged home with outpatient follow up Discharge Plan Departure Patient Disposition: Home Clinical Impression: A-fib, SVT (supraventricular tachycardia) Instructions: Paroxysmal Supraventricular Tachycardia, DI for Atrial Fibrillation Activity Restrictions/Additional Instructions: Please follow up with your public health social worker and your primary care doctor Please read the discharge instructions sheet carefully and bring all papers to all doctor follow-up visits, as it may contain information that your doctor may want to see. Disease processes change and evolve, if your symptoms worsen or if you develop any new symptoms that are concerning to you please return for evaluation. Your evaluation today does not show any evidence of any life- threatening/serious illnesses requiring admission to the hospital or surgery. Please follow-up with your doctor for re-evaluation in approximately 1 day. Seek immediate medical attention for any worrisome symptoms. *If you do not have a primary care provider please contact the [facility] Resource line at [phone]. They will ask some questions about your medical history and help get you set up with a doctor in the community. Prescriptions: No Action metolazone 2.5 mg tablet 2.5 mg PO DAILY gabapentin 300 mg capsule 300 mg PO PRN potassium chloride 10 mEq tablet extended release 10 meq PO DAILY oxycodone 5 mg capsule 5 mg PO Q4H PRN (Reason: pain) Qty: 20 0RF pantoprazole [Protonix] 40 mg tablet,delayed release (DR/EC) 40 mg PO DAILY Qty: 30 1RF Referrals: Carolina Fowler [Primary Care Provider, Medical] Stand Alone Forms: Patient Portal/API
--- NOTE | 2025-03-22 23:28 | DI.RAD.S_ITS ---
PROCEDURE: XR CHEST 1V INDICATIONS: palpitations TECHNIQUE: One view of the chest was acquired. COMPARISON: [facility], CR, XR CHEST 1V, 03/12/2025, 8:38. FINDINGS: Surgical changes and devices: None. Lungs and pleura: Lungs are clear. No pleural effusions or pneumothorax. Mediastinum: Mediastinal contours appear normal. Heart size is prominent. Bones and chest wall: No suspicious bony lesions. Overlying soft tissues appear unremarkable. IMPRESSION: No acute pulmonary process. Dictated by: Graciela Hannon M.D. on 03/23/2025 at 0:18 Approved by: Graciela Hannon M.D. on 03/23/2025 at 0:18
--- NOTE | 2025-03-22 23:30 | EKG_ITS ---
[address] [address] Test Date: 2025-03-22 Pat Name: Jared Fatima Department: Room: Gender: Male Clothes Model: JANELLE : 1940 Requested By: Order Number: [id number] Reading MD: Agusto Sin Measurements Intervals [place] Rate: 82 P: ID: QRS: 136 QRSD: 162 T: -23 QT: 462 QTc: 539 Interpretive Statements Suspect arm lead reversal, interpretation assumes no reversal Undetermined rhythm Right bundle branch block Lateral infarct , age undetermined T wave abnormality, consider inferior ischemia Lateral TWI Electronically Signed On 03-29-2025 7:23:40 PST by Agusto Sin
[2025-03-22 23:47] VITALS: PULSE 84; RESP 25; O2SAT 93
[2025-03-22] MEDS: MAGNESIUM SULFATE 2 GM/50 ML PIGGYBACK IV (23:47)
[2025-03-22 23:57] LABS: Alanine Aminotransferase 22 IU/L (<50); Albumin 3.6 g/dL (3.5-5.0); Albumin Globulin Ratio 1.0 (1.0-2.8); Alkaline Phosphatase 159 U/L (38-126); Blood Urea Nitrogen 41 mg/dL (9-20); Calcium 8.5 mg/dL (8.4-10.2); Carbon Dioxide 27 mmol/L (22-32); Chloride 103 mmol/L (98-107); Creatine Kinase < 20 U/L (55-170); Estimated Glomerular Filt Rate 55 mL/min (>60); Globulin 3.7 g/dL (1.7-4.1); Glucose 190 mg/dL (70-99); HEMOLYSIS < 15 (0-50); Lipase 67 U/L (23-300); Magnesium 1.9 mg/dL (1.6-2.3); Potassium 3.7 mmol/L (3.4-5.1); Sodium 139 mmol/L (137-145); Total Protein 7.3 g/dL (6.3-8.2)
[2025-03-23] VITALS: BP 121/58; PULSE 64; RESP 29; O2SAT 95
[2025-03-23 00:08] LABS: NT-proBNP (BNP-Adult 18+) 3690 pg/mL (<450); Troponin I 0.079 ng/mL (0.01-0.034)
[2025-03-23 00:25] LABS: Add Manual Diff / Slide Review NO; Hematocrit 28.0 % (41-53); Hemoglobin 9.5 g/dL (13.5-17.5); Lymphocytes Absolute Auto 900 /uL (1100-4500); Mean Corpuscular HGB Conc 33.8 % (30-36); Mean Corpuscular Hemoglobin 33.1 PG (26-34); Mean Corpuscular Volume 97.8 fL (80-100); Platelet Count 201 X10^3/uL (150-400)
[2025-03-23 00:30] VITALS: BP 112/54; PULSE 59; RESP 28; O2SAT 95
--- NOTE | 2025-03-23 00:37 | EKG_ITS ---
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
[2025-03-23 00:51] LABS: TSH w/ Reflex to FT4 1.81 uIU/mL (0.47-4.68)
[2025-03-23 01:00] VITALS: BP 118/56; PULSE 58; RESP 23; O2SAT 97
== END 2025-03-23 01:17 | disposition home or self-care (01) ==
PROVIDERS: Emergency Provider Student in an Organized Health Care Education/Training Program; PCP Physician Assistant Medical
DX: I48.91 Unspecified atrial fibrillation (principal); I47.10 Supraventricular tachycardia, unspecified
CPT/HCPCS: 36415; 71045; 80053; 82550; 83690; 83735; 83880; 84443; 84484; 85025; 93005; 96365; 99284; J3475